=== PATIENT | female | born 1950 | race Caucasian/White ===

== ENCOUNTER → 2017-12-16 10:46 | Outpatient (CLI) | payer MEDICARE, OTHER, SELFPAY ==
--- NOTE | 2017-12-16 | DI.MG.S_ITS ---
BILATERAL DIGITAL SCREENING MAMMOGRAM 3D/2D WITH CAD: 12/16/2017 CLINICAL: Routine screening. Comparison is made to exams dated: 09/05/2015 mammogram, 06/04/2014 mammogram, and 05/18/2013 mammogram - [facility]. There are scattered fibroglandular elements in both breasts. Current study was also evaluated with a Computer Aided Detection (CAD) system. No significant masses, calcifications, or other findings are seen in either breast. There has been no significant interval change. IMPRESSION: NEGATIVE There is no mammographic evidence of malignancy. A 1 year screening mammogram is recommended. This exam was interpreted at Station ID: [id number]. NOTE: For mammograms, a report in lay terms will be sent to the patient. Approximately 15% of breast malignancies will not be visualized mammographically. In the management of a palpable breast mass, a negative mammogram must not discourage biopsy of a clinically suspicious lesion. Electronically Signed By: Nidhi odom/brock:12/16/2017 12:29:21 letter sent: Normal Exam ACR BI-RADS Category 1: Negative 3341F
== END ==
PROVIDERS: PCP Family Medicine; Visit Provider Family Medicine
DX: Z12.31 Encounter for screening mammogram for malignant neoplasm of breast (principal)
CPT/HCPCS: 77063; 77067

== ENCOUNTER → 2018-05-26 09:43 | Outpatient (CLI) | payer MEDICARE, OTHER, SELFPAY ==
[2018-05-26 11:09] LABS: Add Manual Diff / Slide Review NO; Basophils Absolute Auto 100 /uL (0-100); Basophils Percent Auto 0.8 % (0-2); Eosinophils Absolute Auto 100 /uL (0-450); Hematocrit 37.8 % (36-46); Hemoglobin 12.5 g/dL (12.0-16.0); Lymphocytes Absolute Auto 3000 /uL (1100-4500); Lymphocytes Percent Auto 30.2 % (25-40); Mean Corpuscular HGB Conc 33.1 % (30-36); Mean Corpuscular Hemoglobin 31.9 PG (26-34); Mean Corpuscular Volume 96.4 fL (80-100); Monocytes Absolute Auto 500 /uL (0-900); Neutrophils Absolute Auto 6300 /uL (1500-7000); Platelet Count 324 X10^3/uL (150-400); Red Blood Cell Count 3.92 X10^6/uL (4.0-5.2); Red Cell Distribution Width 13.7 % (11.6-14.8)
[2018-05-26 11:34] LABS: Alanine Aminotransferase 22 IU/L (9-52); Albumin 4.3 g/dL (3.5-5.0); Albumin Globulin Ratio 1.3 (1.0-2.8); Alkaline Phosphatase 74 U/L (38-126); Aspartate Aminotransferase 18 IU/L (14-36); Bilirubin Total 0.7 mg/dL (0.2-1.3); Blood Urea Nitrogen 17 mg/dL (7-17); Calcium 9.1 mg/dL (8.4-10.2); Carbon Dioxide 26 mmol/L (22-32); Chloride 103 mmol/L (98-107); Cholesterol 226 mg/dL (140-199); Estimated Glomerular Filt Rate > 60.0 mL/min (>60); Globulin 3.3 g/dL (1.7-4.1); Glucose 96 mg/dL (80-110); HDL Cholesterol 69 mg/dL (40-60); HEMOLYSIS < 15 (0-50); LDL Cholesterol Calculated 135 mg/dL (<100); Potassium 3.9 mmol/L (3.4-5.1); Sodium 139 mmol/L (137-145); Total Protein 7.6 g/dL (6.3-8.2); Triglycerides 110 mg/dL (35-150)
[2018-05-26 12:29] LABS: Thyroid Stimulating Hormone 2.22 uIU/mL (0.47-4.68)
== END ==
PROVIDERS: PCP Family Medicine; Visit Provider Family Medicine
DX: R89.9 Unspecified abnormal finding in specimens from other organs, systems and tissues (principal); E78.5 Hyperlipidemia, unspecified; Z13.0 Encounter for screening for diseases of the blood and blood-forming organs and certain disorders involving the immune mechanism; Z13.29 Encounter for screening for other suspected endocrine disorder
CPT/HCPCS: 36415; 80053; 80061; 84443; 85025

== ENCOUNTER → 2018-12-09 12:12 | Outpatient (CLI) | payer MEDICARE, OTHER, SELFPAY ==
[2018-12-09 12:41] LABS: Hematocrit 37.7 % (36-46); Hemoglobin 12.7 g/dL (12.0-16.0); Mean Corpuscular HGB Conc 33.8 % (30-36); Mean Corpuscular Hemoglobin 32.1 PG (26-34); Mean Corpuscular Volume 95.1 fL (80-100); Platelet Count 316 X10^3/uL (150-400); Red Blood Cell Count 3.97 X10^6/uL (4.0-5.2); Red Cell Distribution Width 12.3 % (11.6-14.8); White Blood Cell Count 7.1 X10^3/uL (4.5-11.0)
[2018-12-09 12:57] LABS: Hemoglobin A1C% w Est Avg Glu 5.6 % (4.0-6.0)
[2018-12-09 13:08] LABS: Erythrocyte Sedimentation Rate 10 MM/HR (0-20)
[2018-12-09 13:21] LABS: Appearance Urine UA CLEAR; Bilirubin Urine UA NEGATIVE (NEGATIVE); Color Urine UA YELLOW; Glucose Urine UA NEGATIVE (Negative); Ketones Urine UA NEGATIVE (NEGATIVE); Leukocyte Esterase Urine UA NEGATIVE (NEGATIVE); Nitrite Urine UA POSITIVE (Negative); Occult Blood Urine UA TRACE-LYSED (Negative); Protein Urine UA NEGATIVE (Negative); Specific Gravity Urine UA 1.015 (1.000-1.035); Urobilinogen Urine UA 0.2 E.U./dL (0.2)
[2018-12-09 13:26] LABS: pH Urine UA 5.5 (4.5-8.0)
[2018-12-09 13:28] LABS: Amorphous Sediment Urine 1+; Bacteria Urine Many (>30); Culture Indicated Urine Specimen Cultured; RBC Urine 0-1/HPF (0-5/HPF); Squamous Epithelial Cell Urine 1-5 /HPF (0-5/HPF); WBC Urine 5-10/HPF (0-5/HPF)
[2018-12-09 13:29] LABS: BUN Creatinine Ratio 33.3 (6-22); Blood Urea Nitrogen 20 mg/dL (7-17); C-Reactive Protein Quant 1.3 mg/dL (<1.0); Carbon Dioxide 25 mmol/L (22-32); Chloride 105 mmol/L (98-107); Estimated Glomerular Filt Rate > 60.0 mL/min (>60); Glucose 109 mg/dL (80-110); HEMOLYSIS < 15 (0-50); Sodium 140 mmol/L (137-145)
== END ==
PROVIDERS: PCP Family Medicine; Visit Provider Orthopaedic Surgery
DX: Z01.818 Encounter for other preprocedural examination (principal); N39.0 Urinary tract infection, site not specified; R73.9 Hyperglycemia, unspecified
CPT/HCPCS: 36415; 80048; 81001; 83036; 85027; 85651; 86140; 87077; 87086; 87186; 93005; 93010

== ENCOUNTER → 2019-01-11 12:25 | Outpatient (CLI) | payer MEDICARE, OTHER, SELFPAY ==
--- NOTE | 2019-01-11 | DI.MG.S_ITS ---
BILATERAL DIGITAL SCREENING MAMMOGRAM 3D/2D WITH CAD: 01/11/2019 CLINICAL: Routine screening. Comparison is made to exams dated: 12/16/2017 mammogram, 09/05/2015 mammogram, and 06/04/2014 mammogram - [facility]. There are scattered fibroglandular elements in both breasts. Current study was also evaluated with a Computer Aided Detection (CAD) system. No significant masses, calcifications, or other findings are seen in either breast. There has been no significant interval change. IMPRESSION: NEGATIVE There is no mammographic evidence of malignancy. A 1 year screening mammogram is recommended. This exam was interpreted at Station ID: [id number]. NOTE: For mammograms, a report in lay terms will be sent to the patient. Approximately 15% of breast malignancies will not be visualized mammographically. In the management of a palpable breast mass, a negative mammogram must not discourage biopsy of a clinically suspicious lesion. Electronically Signed By: Nidhi odom/brock:01/13/2019 16:25:01 letter sent: Normal Exam ACR BI-RADS Category 1: Negative 3341F
== END ==
PROVIDERS: PCP Family Medicine; Visit Provider Family Medicine
DX: Z12.31 Encounter for screening mammogram for malignant neoplasm of breast (principal)
CPT/HCPCS: 77063; 77067

== ENCOUNTER 2019-02-02 07:41 | Inpatient (IN) | payer MEDICARE, OTHER, SELFPAY ==
[2019-01-19 09:44] VITALS: BMI 38.0
[2019-02-02] VITALS (17 sets, daily range): BP systolic 105–174; BP diastolic 63–92; PULSE 69–101; RESP 9–17; TEMP 35–36.8; O2SAT 91–99; BMI 38.0
--- NOTE | 2019-02-02 06:00 | DI.RAD.S_ITS ---
PROCEDURE: XR KNEE RT 1TO2V INDICATIONS: TKA TECHNIQUE: 2 view(s) of the knee acquired. COMPARISON: None. FINDINGS: Bones: Patient is status post knee joint arthroplasty. Hardware components are in expected positions. Visualized bony structures are intact. Soft tissues: Overlying postoperative changes are noted. IMPRESSION: Post right total knee arthroplasty changes with anatomic right knee alignment. Dictated by: Seth Dillon M.D. on 02/02/2019 at 15:27 Approved by: Seth Dillon M.D. on 02/02/2019 at 15:28
[2019-02-02] MEDS: ACETAMINOPHEN 325 MG TABLET 975 MG PO ×2 (08:53→20:02)
[2019-02-02] MEDS: PREGABALIN 75 MG CAPSULE PO (08:53)
[2019-02-02] MEDS: CELECOXIB 200 MG CAPSULE PO (08:53)
[2019-02-02] MEDS: VANCOMYCIN 1,000 MG/200 ML PIGGYBACK 200 MG IV (09:22)
[2019-02-02] MEDS: LACTATED RINGERS 1,000 ML 42 ML IV ×2 (09:23→12:31)
--- NOTE | 2019-02-02 09:59 | PM.PREOP ---
Pre-operative Note Interval Note History & Physical reviewed/Exam performed by Physician: Yes Changes to H&P: No
--- NOTE | 2019-02-02 10:00 | PM.OP.1 ---
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 Surgeon: Sheyla Barclay Retail Grocer: Valery Jessica Anesthesia Type: General and Spinal Operative Notes Findings: Severe lateral compartment arthritis and patellofemoral arthritis, unicompartment attached and not grossly loose and worn Closure Type: primary Specimen(s): other (Deep cultures) Prosthetic devices, grafts, tissues, transplants, or devices: Barclay and Nephew Journey BCS 2 size 2 tibia, size 2 right femur, +12 poly, 35 by 7-03/30 patella Applied: drain(s) Estimated Blood Loss (mL): 300 Blood products transfused: none Tourniquet time (min): 130 Procedure in detail: The patient was seen in the pre-operative area, where the patient identified the right knee as the operative site and this was marked with my initials. The patient received pre-operative antibiotics, and was taken to the operating room and placed on the operative table in the supine position. After satisfactory anesthesia, a program aide group work out was performed. The right leg was encircled with a tourniquet about the proximal thigh, and the leg was prepared from the toes to the tourniquet with ChloroPrep in the usual fashion and draped through sterile drapes. The leg was elevated and exsanguinated with Eschmark bandage and the tourniquet inflated to [250] mmHg pressure. The knee was approached through an approximately 18 cm incision centered over the patella and carried into the knee through a medial parapatellar arthrotomy. A portion of the lateral meniscus was resected. Soft tissue was carefully mobilized around the patella the patella was measured with a caliper. Bone was resected from the patella and the patellar height was reconstituted with up an appropriate sized patellar component. A cover was then placed on the patella. Soft tissue was dissected was carried out around the joint line medially and laterally and initial releases was performed. The distal femur was cut at 5?. A [+2] cut was used. The femoral component was then meticulously removed using a combination of a TPS saw and osteotomes. There was minimal bone loss. It looked like an appropriate distal femoral cut and the cut was made without difficulty. Dissection was then carried around the proximal tibia and tibial component. The tibia saw was used to loosen the component from the underlying bone cement. There was some gap in the medial tibial bone but not severe. An extramedullary guide was used for the tibial cut. 10 mm was resected off the least affected side.The tibia was prepared. The rotation was assessed. The patient was placed in extension residual medial and lateral meniscus as well as any residual bone was carefully resected. Hemostasis was achieved especially posteriorly. Additional local was injected into the posterior capsule. The extension gap was assessed and additional releases for gap balancing were performed as necessary. It was checked with the gap supervisor inspection department. The femoral sizing and cutting guide was placed. The epicondylar axis was identified. Whitesides line was identified. There was a gap in the posterior aspect of the femur from the previous unicompartment replacement on the medial side I used a combination of filling this with the osteotome checking the overall alignment externally rotating the component a few degrees and also placing a small osteotome against the bone in order to further stabilize the trial Sizer. She had a small femur it was a size 2. The rotation was assessed and the appropriate size femoral guide was placed on the distal femur and finishing cuts were made. She had very thin anterior cortex and there was a small amount of bone loss in the anterior cortex which was noted prior to doing finishing cuts on the distal femur. There was no evidence of notching. The anterior, posterior and chamfer cuts were then made. The posterior osteophytes and soft tissues were then removed. We also looked at possibly doing a size 3 femur or considering doing a legion size 3 femur which would have allowed placement of his stem. She had a very small in soft distal femur and I was concerned that the prep for the stem would have resected an excessive amount of her distal femur. After careful consideration of different options I chose a Journey size 2 femur. The notch was prepped. The posterior capsule was injected with part of a mixture of 60 ml 0.25% Marcaine mixed with 20 ml Exparel for post operative pain control. The remainder of this mixture was injected into the capsule and subcutaneous tissues during cement curing. Tibial and femoral components were then placed and the knee placed through a range of motion. Range of motion was [0-130], with good stability throughout the range with between an 11 and a 12 polyethylene. The trials were then removed, and the tibia was finished. The size 2 tibia appeared to be appropriately sized and had good support both medially and laterally as well as peripherally. I had planned to do a 10 mm stem and I reamed for a 10 mm stem through the tibial base plate. The bone was prepared with pulsatile lavage, and dried with a sponge. Cement was applied and the we attempted to insert the tibial component with 100 mm stem extension. It clearly could not be passed distally and it was felt to be impinging on the coupling component of the prosthesis. There was not a size 2 tibial trial component available. After careful consideration it was felt that the size 2 tibia with 100 mm stem extension could not be passed and a separate size to Journey tibial component was opened and inserted without difficulty. Free cement was carefully cleared from around the tibial component. Cement was placed on the femoral component and the femoral component was placed. Trial 11 poly was placed. Patella was cemented without difficulty. Excess cement was removed during and after cement curing. A brief Betadine soak was performed. After confirming there was no extruded cement posteriorly, the final tibial insert was placed. I went up to a size 12 poly. The knee was copiously irrigated and the tourniquet deflated. Hemostasis was obtained with the [Aquamantys system]. A drain was placed and brought out superolaterally. The capsule was closed with interrupted nonabsorbable suture. The subcutaneous layer was closed with barbed sutures, and the skin with a running 3-0 V-Lock suture and Surgical glue. An sherif dressing was applied and the patient was taken to recovery having tolerated the procedure well. Complications: none Post-operative Condition: stable Disposition: Acute Care Plan for aftercare: The patient will be maintained on a standard total knee replacement protocol with weight bearing as tolerated. The patient will receive aspirin and sequential compression devices for DVT prophylaxis. The patient will be discharged home when safe for the home environment.
[2019-02-02] MEDS: CEFAZOLIN 2 GM/100 ML FROZ.PIGGY IV ×2 (10:50→18:18)
--- NOTE | 2019-02-02 11:38 | SUR.OPER ---
Supine on padded OR bed. Pillow under head, arms secured on padded armboards <90 degree abduction. Safety belt across torso. Non-operative leg secured with tape over blanket over lower leg. Operative leg secured in DeMayo/Eddie positioner. Foam padded brace at thigh of operative leg.
[2019-02-02] MEDS: TRANEXAMIC ACID 1,000 MG VIAL 2000 MG INJ ×2 (11:48→13:21)
[2019-02-02] MEDS: BUPIVACAINE LIPOSOME 266 MG/20 ML VIAL INJ (11:48)
[2019-02-02] MEDS: BUPIVACAINE 0.25% W/ EPI 30 ML VIAL 60 ML INJ (11:48)
[2019-02-02] MEDS: SODIUM CHLORIDE IRRIG SOLUTION 250 ML, POVIDONE-IODINE SPONGE STICKS 1 APPLIC IRR (11:54)
[2019-02-02] MEDS: HYDROMORPHONE 2 MG INJ 0.5 MG IV ×2 (14:49→14:55)
--- NOTE | 2019-02-02 14:56 | SUR.PHASEI ---
HV unclamped while patient was getting an x-ray, drain re-clamped quickly.
--- NOTE | 2019-02-02 16:00 | SUR.PHASEI ---
Report called to Key. Pt c/o need to void, place on bedpan, able to void ganesh urine.
--- NOTE | 2019-02-02 16:50 | SUR.PHASEI ---
1610 Report to Aníbal. VS stable. Belongings bag with patient. Walker brought up by Silver. Knee drsg cdi. HV clamped. JOANNA green light flashing.
[2019-02-02] MEDS: ONDANSETRON 4 MG ODT PO (17:02)
[2019-02-02] MEDS: LACTATED RINGERS 1,000 ML 125 ML IV (17:03)
[2019-02-02] MEDS: ASPIRIN EC 81 MG TABLET PO (20:01)
[2019-02-02] MEDS: DOCUSATE 100 MG CAPSULE PO (20:01)
[2019-02-02] MEDS: OXYCODONE IR 10 MG TABLET PO (20:01)
[2019-02-03] MEDS: OXYCODONE IR 10 MG TABLET PO ×7 (01:25→21:46)
[2019-02-03] MEDS: LACTATED RINGERS 1,000 ML 125 ML IV (01:26)
--- NOTE | 2019-02-03 01:54 | PC.NURSE ---
TO Dr Walker - Give Valium 5mg PO PRN q 8 hours to help patient sleep
[2019-02-03] MEDS: diazePAM 5 MG TABLET PO (02:11)
[2019-02-03] MEDS: CEFAZOLIN 2 GM/100 ML FROZ.PIGGY IV (02:12)
[2019-02-03] MEDS: PANTOPRAZOLE 20 MG TABLET PO (05:39)
[2019-02-03 06:06] LABS: Hematocrit 31.8 % (36-46); Hemoglobin 10.5 g/dL (12.0-16.0)
[2019-02-03 08:00] VITALS: BP 110/48; PULSE 78; RESP 18; TEMP 36.8; O2SAT 95
[2019-02-03] MEDS: ACETAMINOPHEN 325 MG TABLET 975 MG PO ×3 (08:21→20:51)
[2019-02-03] MEDS: ESTRADIOL 0.5 MG TABLET PO (08:22)
[2019-02-03] MEDS: ASPIRIN EC 81 MG TABLET PO ×2 (08:22→20:51)
[2019-02-03] MEDS: DICLOFENAC 75 MG DR TABLET 150 MG PO (08:22)
[2019-02-03] MEDS: DOCUSATE 100 MG CAPSULE PO ×2 (08:22→20:51)
[2019-02-03] MEDS: POLYETHYLENE GLYCOL 3350 17 GM POWD.PACK PO (08:23)
--- NOTE | 2019-02-03 08:57 | PM.DS.1 ---
History of Present Illness History of Present Illness Chief complaint: [id number] Discharge Providers Provider Date of admission: 02/02/19 07:41 Primary care physician: Phuc Polanco MD Consults: 02/02/19 06:00 Consult to Anesthesiology Routine Comment: Consulting Provider: Anesthesiologist Reason for consultation: Regional block for post operative pain control 02/02/19 16:16 Consult to Discharge Planning Routine Comment: Consult to Physical Therapy Evaluate & Treat Comment: Physician Instructions: postop TKA protocol Consult to Respiratory Therapy Evaluate & Treat Comment: Physician Instructions: Evaluate and treat Discharge provider: Jayshree Mendoza PA-C Exam Vital Signs (past 8 hours): - 02/03/19 08:00 Temperature 98.2 F Pulse Rate 78 Respiratory Rate 18 Blood Pressure 110/48 L Pulse Oximetry 95 Oxygen Delivery Method Room Air Oxygen Flow Rate 0 Objective Labs Result Diagrams: 02/03/19 05:44 Labs: Laboratory Results - last 24 hr 02/03/19 05:44 Hgb 10.5 L Hct 31.8 L Discharge Plan Discharge Plan Patient Disposition: Home Discharge Med Rec/Prescriptions Prescriptions: New aspirin 81 mg Tablet,Delayed Release (Dr/Ec) 81 mg PO BID Qty: 60 RF: 0 docusate sodium [DOK] 100 mg Capsule 100 mg PO BID Qty: 60 RF: 0 Continued omeprazole 20 mg tablet,delayed release (DR/EC) 20 mg PO QDAY Qty: 90 RF: 1 estradiol 0.5 mg tablet 0.5 mg PO Q DAY Qty: 90 RF: 3 triamcinolone acetonide 0.1 % cream 1 applictn TOP BID PRN (Reason: Rash) RF: 0 nortriptyline 25 mg capsule 50 mg PO QAM RF: 0 diclofenac sodium 75 mg tablet,delayed release (DR/EC) 150 mg PO QAM RF: 0 acetaminophen [Acetaminophen Extra Strength] 500 mg Tablet 1,000 mg PO DAILY PRN (Reason: Pain) RF: 0 Follow up/Referrals: Phuc Polanco MD [Primary Care Provider] - Sheyla Barclay MD [Physician] - Provider Discharge Instructions Cold/Heat Therapy: as needed Skin/Wound/Dressing Care Report to your healthcare provider any signs of infection, such as:: chills, fever and increased pain Dressing: Keep in place until appointment Visit Report/Discharge Packet Instructions: DI for Knee Replacement Discharge Data Primary Care Provider: Phuc Polanco VTE Deep Vein Thrombosis/Pulmonary Embolism Present on Admission: No
--- NOTE | 2019-02-03 09:02 | CM.IDA ---
Discharge Planning/Care Management CM Discharge Assessment Start: 02/03/19 08:58 Freq: Status: Active Protocol: Document 02/03/19 08:58 AMADOU (Rec: 02/03/19 09:02 AMADOU [id number]) Discharge Planning Assessment Assigned Bird Sitter SHAYNE Finley DPOA/Assigned Designee Name Jian (son) Sami (daughter) Contact Information [phone], Advance Directives? Yes History Provided By Patient Prior Living Arrangements Mobile home Household Members none Type of transporation used prior to Drives own vehicle admit Independent with ADL's Yes Is patient alert and oriented? Yes Patient/Family Preference OP PT Therapy Barriers to Discharge No Comment Pt plans to DC back to [facility] today w/ outpt f/u and dtr to assist once home. Ortho PA has begun DC process pending therapy team clears pt for DC today. Likely no barriers to safe DC home, pending progress w/ therapy team today. Discharge Plan Home Transportation Arrangement Family Referrals Initiated None needed Review Status In Process
--- NOTE | 2019-02-03 10:14 | PM.PNPO.1 ---
Subjective Subjective Date Patient Seen: 02/03/19 Time Patient Seen: 07:14 Interval history: POD #1 s/p right total knee arthroplasty revision from unicompartment arthroplasty with Dr. Barclay. Patient's pain well-controlled last night. Drain in place. She has not been up with physical therapy yet. Exam Vital Signs (past 8 hours): - 02/03/19 08:00 Temperature 98.2 F Pulse Rate 78 Respiratory Rate 18 Blood Pressure 110/48 L Pulse Oximetry 95 Oxygen Delivery Method Room Air Oxygen Flow Rate 0 Narrative Exam Narrative: Patient sitting up in bed in no acute distress. We mobilized to the bedside chair. She was slow to mobilize requiring to assist. Chi Dressing on right knee is CDI. Calves are soft, compressible, nontender bilaterally. Pulses are symmetrical. Objective Labs Result Diagrams: 02/03/19 05:44 Labs: Laboratory Results - last 24 hr 02/03/19 05:44 Hgb 10.5 L Hct 31.8 L Assessment & Plan Post-op Postoperative Procedures: Procedures Operation Date: 02/02/19 10:45 Actual Procedures Side Surgeon p Revision in the compatment arthroplasty medial to total knee arthroplasty Right Sheyla Golden Barclay MD Patient recovering well after surgery. She is slow to mobilize. She will work with physical therapy today. Continue current pain control. She may need home health services vs SNF if she continues to be slow to mobilize. Quality VTE Deep Vein Thrombosis/Pulmonary Embolism Present on Admission: No
[2019-02-03] MEDS: CYCLOBENZAPRINE 5 MG TABLET PO ×2 (11:54→19:05)
--- NOTE | 2019-02-03 12:24 | PT.IIE ---
Current Diagnoses Unilateral primary osteoarthritis, right knee (02/02/19) Presence of right artificial knee joint (02/02/19) Surgery Performed Operation Date: 02/02/19 10:45 Actual Procedures p Revision in the compatment arthroplasty medial to total knee arthroplasty(Right) - Sheyla Barclay MD Surgical History (Last Updated 01/19/19 @ 10:22 by Angelita Lama RN) History of bilateral knee arthroplasty (Acute) History of colon resection (Acute) History of hysterectomy (Acute) Hx laparoscopic cholecystectomy (Acute ~07/2014) Hx of hernia repair (Acute) Medical History (Last Updated 01/19/19 @ 10:22 by Angelita Lama RN) Bilateral cataracts (Acute) Edema (Acute) GERD (gastroesophageal reflux disease) (Acute) Hypercholesterolemia (Acute) Pneumonia (Acute ~07/2014) RLS (restless legs syndrome) (Acute) Physical Therapy Inpatient Evaluation/Re-Eval M1 PT/OT-IP Prior Functional Status Start: 02/03/19 08:08 Freq: NEEDED Status: Active Protocol: Document 02/03/19 09:12 (Rec: 02/03/19 11:53 [id number]) Medical Review Prior Functional Status Medical History Reviewed Yes Diet/Fluid Consistency Regular Communication No noted cognitive or communication deficits. Mobility and Gait I prior to surgery. Activities of Daily Living and IADL's I prior to surgery. Prior Functional Level (Other details) Pt was able to drive prior to surgery. Pt had a L TKA 7-8 years ago and was able to return home and to full I following that. Social History Household Members none Living Arrangements Mobile home Number of Floors (Floors) One Floor Number of Stairs To Enter/Railing? 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 Pt does not live with anybody but her son lives about [address] away from her. Pt's daughter is also planning to come from [facility] to stay with her for about a week once she returns home. 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 Pt has multiple ADs at home and says she plans to use her 4WW. M2 PT-IP Current Condition Start: 02/03/19 08:08 Freq: NEEDED Status: Active Protocol: Document 02/03/19 09:12 JG (Rec: 02/03/19 11:53 J [id number]) Physical Therapy Current Condition Current Condition Evaluation Date 02/03/19 Treatment Diagnosis R TKA, difficulty walking, impaired mobility, limited activity tolerance Onset Date 02/02/19 Weight Bearing Status Weight Bearing Status Weight Bear as Tolerated M3 PT-IP Subjective Start: 02/03/19 08:08 Freq: NEEDED Status: Active Protocol: Document 02/03/19 09:12 JG (Rec: 02/03/19 11:53 J [id number]) Subjective Physical Therapy Visit Type Type Initial Evaluation Visit Start Time 09:12 Visit Stop Time 09:48 Total Visit Minutes 36 Notes IE led by SPT Dafne, supervised by PT Shemar Number of MULTIMEDIA INSTRUCTIONAL DESIGNER Visits 0 Physical Therapy Visit Comments Patient Comments I am in a lot of pain. I would like to go home but I don't think I'm ready for that today. Patient Goals Return home Therapy Pain Assessment Pain When Pain Assessed At Rest Pain Present Pain Present Pain Reported Location right knee Intensity 5 Scale Used Numeric (1 - 10) Description Acute,Sharp,With Movement Pain Behaviors Calling Out,Facial Grimacing, Guarding,Wincing Pain Management Techniques Apply Cold,Distraction,Timing of Activity with Medications M4 PT-IP Mobility and Gait Start: 02/03/19 08:08 Freq: NEEDED Status: Active Protocol: Document 02/03/19 09:12 JG (Rec: 02/03/19 11:53 J [id number]) PT-Transfer Assessment Sit to and From Stand Sit to and from Stand Minimal Assistance,Use of Upper Extremities Equipment Transfer Assistive Device Gait Belt,Front Wheeled Walker Orthotic/Prosthetic Devices or Brace: No Transfers Transfer Destination Chair Transfer Technique Stand Step Pivot Transfer Ability Level of Assist Minimal Assistance Comments Mobility Comments Pt up in chair upon assessment . Pt able to scoot to edge of chair with Hazel. Upon standing initially pt experienced urinary stress incontinence ( Never happend before surgery). Pt performed multiple sit to/ from stand with min A to don a brief. Needed cues for walker management and hand placement . She did have difficulty reaching full stance from mid stance. Pt able to perform pericare when sitting but required assist when standing as pt required both UE support to maintain standing d/t pain . Following ambulation pt required min A to control descent with stand to sit, and modA to scoot back in chair. Pt reported high pain limited her ability to move her R leg. Pt left in chair with call light and needs within reach and ice packs on her R knee. Gait Assessment Gait Gait Assistance Required: Contact Guard Assist,Minimum Assistance Distance (Feet) 30 Able to Maintain Weight Bearing Status Yes During Gait Assistive Devices Assistive Device Gait Belt,Front Wheeled Walker Orthotic/Prosthetic Devices or Brace: No Gait Deviations General Gait Pattern Antalgic,Decreased Stride Length,Decreased Feet Clearance,Flexed Trunk,Lateral Trunk Lean,Step-to Gait,Wide Based Gait Factors Limiting Gait Function Factors Limiting Gait Function Decreased Activity Tolerance, Decreased Strength,Limited Range of Motion,Pain,Poor Balance Comments Gait Comments Pt demonstrated significant impairments in gait d/t pain. Pt was very hesitant to place weight on R LE d/t pain. Pt ambulated with partial step to gait pattern initially, and with cuing was able to achieve step to gait but had increased pain. Pt required initial CGA but after ~20 ft required min A d/t fatigue and pain. Stair Climbing Assessment Comments Stair Climbing Comments not assessed PT-Balance Assessment Sitting Balance and Reactions Static Sitting Balance Ability Good Dynamic Sitting Balance Ability Good Standing Balance and Reactions Static Standing Balance Ability Fair Dynamic Standing Balance Ability Fair Device Used FWW M5 PT-IP Objective Assessments Start: 02/03/19 08:08 Freq: NEEDED Status: Active Protocol: Document 02/03/19 09:12 HUNTER (Rec: 02/03/19 11:53 [id number]) Orientation Orientation/Cognition Level of Alertness Alert Orientation Name,Age,Birthday,Month,Date, Year,Day of Week,Place, Situation Language Function Ability No Deficits Noted Safety Awareness Understands Safety Issues Memory Description No Deficits Noted Comments No noted cognitive or communication deficits. Pt was slightly impulsive during session as she fatigued. Gross Range of Motion Upper Extremity ROM Assessment Within Functional Limits Lower Extremity ROM Assessment Right Impaired Impairments 10-45 dg knee flexion, limited d/t pain Strength Upper Extremity Strength Assessment Within Functional Limits Lower Extremity Strength Assessment Right Impaired M6 PT-IP Treatment Start: 02/03/19 08:08 Freq: NEEDED Status: Active Protocol: Document 02/03/19 09:12 HUNTER (Rec: 02/03/19 11:53 HUNTER [id number]) Physical Therapy Treatment Education Education Provided Weight Bearing Status,Post-Op Packet,Safety M7 PT-IP Assessment and Plan Start: 02/03/19 08:08 Freq: NEEDED Status: Active Protocol: Document 02/03/19 09:12 HUNTER (Rec: 02/03/19 11:53 HUNTER [id number]) PT Summary Assessment and Plan Potential Rehabilitation Potential Good Status of Condition at Evaluation Stable Summary Impairments Pain,ROM,Strength,Balance,Bed Mobility,Transfers,Gait, Activity Tolerance Assessment Summary Pt is 68 yo and 1 day s/p R TKA revision. Pt reports I PLOF but high pain level in R knee. Pt cont to report high level of pain even after administration of pain meds. Pt demonstrates limited ability to move and weightbear on R LE d/t pain. Pt required initial min A for mobility. Pt also required assistance with self care and could not don brief independently. Pt lives [place] but notes that her daughter will stay with her for a few days after d/c and her son lives nearby. PT currently recommending d/c to SNF or home with 24/7 assist and home health d/t pt's limited activity tolerance and ability to complete ADLs. PT will cont to reassess. Goals Bed Mobility Goal Independent Transfer Goal Independent Gait Goal Independent Gait Distance 250 Other Goals Ascend/descend 3 stairs with B railings and SBA Days to Meet Goals 5 Frequency of Treatment Frequency Of Treatment Twice a Day Treatment Plan Physical Therapy Treatment Plan Bed Mobility Training,Transfer Training,Gait Training, Therapeutic Exercise,Balance Retraining,Discharge Planning, Hot or Cold Pack,Neuromuscular Re-ed Other Recommendations and Next Treatment knee AROM Focus gait training stair climbing if possible Recommendations To Nursing Amount of Assist Needed 2 Person Assist Discharge Recommendations PT Discharge Recommendations Home with 24/7 Assist,Home Health,SNF Rehab,Outpatient PT Equipment Needed for Home Before Shower chair Discharge
--- NOTE | 2019-02-03 14:58 | PT.IPTN ---
Current Diagnoses Unilateral primary osteoarthritis, right knee (02/02/19) Presence of right artificial knee joint (02/02/19) Surgery Performed Operation Date: 02/02/19 10:45 Actual Procedures p Revision in the compatment arthroplasty medial to total knee arthroplasty(Right) - Sheyla Barclay MD Physical Therapy Treatment Note M2 PT-IP Current Condition Start: 02/03/19 08:08 Freq: NEEDED Status: Active Protocol: Document 02/03/19 09:12 JG (Rec: 02/03/19 11:53 JG [id number]) Physical Therapy Current Condition Current Condition Evaluation Date 02/03/19 Treatment Diagnosis R TKA, difficulty walking, impaired mobility, limited activity tolerance Onset Date 02/02/19 Weight Bearing Status Weight Bearing Status Weight Bear as Tolerated M3 PT-IP Subjective Start: 02/03/19 08:08 Freq: NEEDED Status: Active Protocol: Document 02/03/19 14:58 AB (Rec: 02/03/19 16:41 AB [id number]) Subjective Physical Therapy Visit Type Type Treatment Note Visit Start Time 14:58 Visit Stop Time 15:38 Total Visit Minutes 40 Number of PORTFOLIO SPECIALIST Visits 0 Physical Therapy Visit Comments Patient Comments pt agreeable to do PT Therapy Pain Assessment Pain When Pain Assessed At Rest Pain Present Pain Present Pain Reported Location right knee Intensity 6 Scale Used Numeric (1 - 10) Pain Management Techniques Apply Cold,Re-positioning M4 PT-IP Mobility and Gait Start: 02/03/19 08:08 Freq: NEEDED Status: Active Protocol: Document 02/03/19 14:58 AB (Rec: 02/03/19 16:41 AB [id number]) PT-Transfer Assessment Sit to and From Stand Sit to and from Stand Minimal Assistance,1 Person Assistance,Use of Upper Extremities Equipment Transfer Assistive Device Gait Belt,Front Wheeled Walker Orthotic/Prosthetic Devices or Brace: No Gait Assessment Gait Gait Assistance Required: Minimum Assistance Distance (Feet) 30 Able to Maintain Weight Bearing Status Yes During Gait Assistive Devices Assistive Device Gait Belt,Front Wheeled Walker Orthotic/Prosthetic Devices or Brace: No Gait Deviations General Gait Pattern Antalgic,Decreased Stride Length,Decreased Feet Clearance,Step-to Gait Factors Limiting Gait Function Factors Limiting Gait Function Decreased Activity Tolerance, Decreased Strength,Limited Range of Motion,Pain,Poor Balance,Poor Safety Awareness Comments Gait Comments pt presents with RLE dragging gait but eventually increased in RLE elevation with cues provided. pt has increase use of UE for support on FWW during standing and ambulation with c/o increase R k nee pain. M5 PT-IP Objective Assessments Start: 02/03/19 08:08 Freq: NEEDED Status: Active Protocol: Document 02/03/19 09:12 JG (Rec: 02/03/19 11:53 JG [id number]) Orientation Orientation/Cognition Level of Alertness Alert Orientation Name,Age,Birthday,Month,Date, Year,Day of Week,Place, Situation Language Function Ability No Deficits Noted Safety Awareness Understands Safety Issues Memory Description No Deficits Noted Comments No noted cognitive or communication deficits. Pt was slightly impulsive during session as she fatigued. Gross Range of Motion Upper Extremity ROM Assessment Within Functional Limits Lower Extremity ROM Assessment Right Impaired Impairments 10-45 dg knee flexion, limited d/t pain Strength Upper Extremity Strength Assessment Within Functional Limits Lower Extremity Strength Assessment Right Impaired M6 PT-IP Treatment Start: 02/03/19 08:08 Freq: NEEDED Status: Active Protocol: Document 02/03/19 14:58 AB (Rec: 02/03/19 16:41 AB [id number]) Physical Therapy Treatment Exercises Exercises Heel Slides Education Education Provided Safety M7 PT-IP Assessment and Plan Start: 02/03/19 08:08 Freq: NEEDED Status: Active Protocol: Document 02/03/19 14:58 AB (Rec: 02/03/19 16:41 AB [id number]) PT Summary Assessment and Plan Potential Rehabilitation Potential Good Summary Impairments Pain,ROM,Strength,Balance, Coordination,Sensation, Cognition,Bed Mobility, Transfers,Gait,Activity Tolerance Progress Towards Goals Slow Progress due to Pain Assessment Summary pt requiring min A with ambulation using FWW but relies heavily on UE for support. pt has 3 steps to enter with rails and needs to be completed prior to d/c. will have to conduct caregiver training with pt and pt's daughter. d/c plan depending on progress and if pt's daughter will be able to assist pt safely. will continue to assess but at this time may require SNF rehab. Goals Bed Mobility Goal Independent Transfer Goal Independent,Front Wheeled Walker Gait Goal Independent,Front Wheel Walker Gait Distance 250 Other Goals Ascend/descend 3 stairs with B railings and SBA Days to Meet Goals 5 Frequency of Treatment Frequency Of Treatment Twice a Day Treatment Plan Physical Therapy Treatment Plan Bed Mobility Training,Transfer Training,Gait Training, Therapeutic Exercise,Balance Retraining,Discharge Planning, Hot or Cold Pack,Neuromuscular Re-ed Other Recommendations and Next Treatment knee AROM Focus gait training stair climbing if possible Recommendations To Nursing Amount of Assist Needed 1 Person Assist Discharge Recommendations PT Discharge Recommendations SNF Rehab
--- NOTE | 2019-02-03 15:00 | CM.DPC ---
DCP cont. SUPERVISOR TRANSFERRING AND BOXING met with pt to continue d/c planning assessment needs. Pt had initially been scheduled to d/c home today, however she will remain inpt until tomorrow due to continued pain issues. She declines the need for Home Health/DME or community resources at this time. Her dtr will be arriving from out of town today, and will plan to drive pt home from the hospital tomorrow. No additional needs or concerns identified at this time. D/C planning will continue to monitor.
[2019-02-03 16:15] VITALS: BP 150/82; PULSE 82; RESP 20; TEMP 37.6; O2SAT 98
[2019-02-03 20:10] VITALS: BP 138/64; PULSE 84; RESP 20; TEMP 37.4; O2SAT 95
[2019-02-03] MEDS: NORTRIPTYLINE HCL 25 MG CAPSULE 50 MG PO (20:50)
[2019-02-04 00:10] VITALS: BP 110/58; PULSE 106; RESP 16; TEMP 36.4; O2SAT 93
[2019-02-04] MEDS: OXYCODONE IR 10 MG TABLET PO ×4 (00:18→13:22)
[2019-02-04] MEDS: PANTOPRAZOLE 20 MG TABLET PO (04:45)
[2019-02-04 05:20] VITALS: BP 106/80; PULSE 78; RESP 18; TEMP 36.4; O2SAT 95
[2019-02-04 08:00] VITALS: BP 113/75; PULSE 90; RESP 14; TEMP 36.6; O2SAT 96
[2019-02-04] MEDS: ASPIRIN EC 81 MG TABLET PO (09:18)
[2019-02-04] MEDS: DOCUSATE 100 MG CAPSULE PO (09:18)
[2019-02-04] MEDS: ACETAMINOPHEN 325 MG TABLET 975 MG PO (09:18)
[2019-02-04] MEDS: POLYETHYLENE GLYCOL 3350 17 GM POWD.PACK PO (09:19)
[2019-02-04] MEDS: ESTRADIOL 0.5 MG TABLET PO (09:19)
[2019-02-04] MEDS: DICLOFENAC 75 MG DR TABLET 150 MG PO (09:20)
--- NOTE | 2019-02-04 09:29 | PM.DS.1 ---
History of Present Illness History of Present Illness Date Patient Seen: 02/04/19 Time Patient Seen: 09:29 Chief complaint: [id number] Narrative: Pleasant lady with a history of a right knee medial compartment arthroplasty who has progressive osteoarthritis in her lateral compartment and patellofemoral joint spot the operating room for revision to a total knee arthroplasty. Discharge Providers Provider Date of admission: 02/02/19 07:41 Discharge Date: 02/04/19 Primary care physician: Phuc Polanco MD Consults: 02/02/19 06:00 Consult to Anesthesiology Routine Comment: Consulting Provider: Anesthesiologist Reason for consultation: Regional block for post operative pain control 02/02/19 16:16 Consult to Discharge Planning Routine Comment: Consult to Physical Therapy Evaluate & Treat Comment: Physician Instructions: postop TKA protocol Consult to Respiratory Therapy Evaluate & Treat Comment: Physician Instructions: Evaluate and treat Discharge provider: Jayshree Mendoza PA-C Summary Hospital Course Discharge Diagnosis: s/p right tka osteoarthritis obesity Hospital Course: Joann was admitted for a right total knee arthroplasty with Dr. Barclay. Initially patient was slow to mobilize yesterday. On postop day 2 patient was mobilizing safely with physical therapy. Her pain was well controlled. She is eating and voiding without difficulty or assistance. ASA for VTE prophylaxis. She has outpatient appointments scheduled. Exam Vital Signs (past 8 hours): - 02/04/19 05:20 02/04/19 08:00 Temperature 97.6 F 97.9 F Pulse Rate 78 90 Respiratory Rate 18 14 Blood Pressure 106/80 113/75 Pulse Oximetry 95 96 Oxygen Delivery Method Room Air Oxygen Flow Rate 0 Narrative Exam Narrative: Patient is sitting at bedside chair no acute distress. She is alert and oriented x3. Calves are soft, compressible, nontender bilaterally. Pulses are symmetrical. She is able to actively dorsiflex and plantar flex. Chi dressing in place and functioning. Sensation intact to light touch throughout bilateral lower extremities. No complaints this morning. Objective Labs Result Diagrams: 02/03/19 05:44 Discharge Plan Discharge Plan Patient Disposition: Home Discharge Med Rec/Prescriptions Prescriptions: New aspirin 81 mg Tablet,Delayed Release (Dr/Ec) 81 mg PO BID Qty: 60 RF: 0 docusate sodium [DOK] 100 mg Capsule 100 mg PO BID Qty: 60 RF: 0 Continued omeprazole 20 mg tablet,delayed release (DR/EC) 20 mg PO QDAY Qty: 90 RF: 1 estradiol 0.5 mg tablet 0.5 mg PO Q DAY Qty: 90 RF: 3 triamcinolone acetonide 0.1 % cream 1 applictn TOP BID PRN (Reason: Rash) RF: 0 nortriptyline 25 mg capsule 50 mg PO QAM RF: 0 diclofenac sodium 75 mg tablet,delayed release (DR/EC) 150 mg PO QAM RF: 0 acetaminophen [Acetaminophen Extra Strength] 500 mg Tablet 1,000 mg PO DAILY PRN (Reason: Pain) RF: 0 Follow up/Referrals: Phuc Polanco MD [Primary Care Provider] - Sheyla Barclay MD [Physician] - Provider Discharge Instructions Cold/Heat Therapy: as needed Skin/Wound/Dressing Care Report to your healthcare provider any signs of infection, such as:: chills, fever and increased pain Dressing: Keep in place until appointment Visit Report/Discharge Packet Instructions: DI for Knee Replacement Discharge Data Primary Care Provider: Phuc Polanco Quality VTE Deep Vein Thrombosis/Pulmonary Embolism Present on Admission: No
[2019-02-04 09:43] VITALS: PULSE 97; O2SAT 99
--- NOTE | 2019-02-04 09:52 | PC.NURSE ---
Hemovac drain discontinued, patient tolerated well. Gauze with tegaderm dressing placed to site.
--- NOTE | 2019-02-04 10:33 | CM.DANOTE ---
DCP/continued: Reviewed chart. Patient seen by therapy this AM and current recommendation is home with outpatient therapy. Met with patient explained role. Patient reports that she has all needed DME and family support at home. Patient has outpatient appointment scheduled for 02-06. Patient's daughter will be picking her up today. She plans to be on the 2:40pm sailing to [facility]. Nursing aware of patient's need for priority boarding pass. P: Home today. SHAYNE Donaldson
--- NOTE | 2019-02-04 11:09 | PT.IPTN ---
Current Diagnoses Unilateral primary osteoarthritis, right knee (02/02/19) Presence of right artificial knee joint (02/02/19) Surgery Performed Operation Date: 02/02/19 10:45 Actual Procedures p Revision in the compatment arthroplasty medial to total knee arthroplasty(Right) - Sheyla Barclay MD Physical Therapy Treatment Note M2 PT-IP Current Condition Start: 02/03/19 08:08 Freq: NEEDED Status: Active Protocol: Document 02/03/19 09:12 JG (Rec: 02/03/19 11:53 JG [id number]) Physical Therapy Current Condition Current Condition Evaluation Date 02/03/19 Treatment Diagnosis R TKA, difficulty walking, impaired mobility, limited activity tolerance Onset Date 02/02/19 Weight Bearing Status Weight Bearing Status Weight Bear as Tolerated M3 PT-IP Subjective Start: 02/03/19 08:08 Freq: NEEDED Status: Active Protocol: Document 02/04/19 09:48 IVELISSE (Rec: 02/04/19 11:09 LJ [id number]) Subjective Physical Therapy Visit Type Type Treatment Note Visit Start Time 09:48 Visit Stop Time 10:15 Total Visit Minutes 27 Number of FOOD CHEMIST Visits 1 Physical Therapy Visit Comments Patient Comments Pt states she is not in much pain and that she feels she is ready to go home today with assist from her daughter for the next few day. States her son lives close and is able to help also. Patient Goals Return home today Therapy Pain Assessment Pain When Pain Assessed At Rest Pain Present Pain Present Pain Reported M4 PT-IP Mobility and Gait Start: 02/03/19 08:08 Freq: NEEDED Status: Active Protocol: Document 02/04/19 09:48 IVELISSE (Rec: 02/04/19 11:09 LJ [id number]) PT-Transfer Assessment Sit to and From Stand Sit to and from Stand Standby Assistance,Use of Upper Extremities Equipment Transfer Assistive Device Gait Belt,Front Wheeled Walker Orthotic/Prosthetic Devices or Brace: No Transfers Transfer Destination Bed,Chair,Toilet Transfer Technique Stand Step Pivot Transfer Ability Level of Assist Standby Assistance,Use of Upper Extremities Comments Mobility Comments Pt in chair wanting to use toilet before walking in hallway and doing stairs and returning to bed. Pt is SBA for all mobility. Gait Assessment Gait Gait Assistance Required: Standby Assistance Distance (Feet) 250 Assistive Devices Assistive Device Gait Belt,Front Wheeled Walker Orthotic/Prosthetic Devices or Brace: No Gait Deviations General Gait Pattern Antalgic,Decreased Stride Length,Decreased Feet Clearance Factors Limiting Gait Function Factors Limiting Gait Function Decreased Activity Tolerance, Decreased Strength,Limited Range of Motion,Pain,Poor Balance Comments Gait Comments Pt improving with mobility and gait. Step length, mechanics, and foot clearance improving with swing through pattern improved. Pt relies less on UEs and shows better posture with amabulation. Stair Climbing Assessment Evaluation Level of Assist On Stairs Standby Assistance Devices Stair Climbing Assistive Devices Left Railing,Right Railing Technique/Endurance Stair Climbing Direction Ascend and Descend Number of Steps Climbed 3 Stair Climbing Set # Repetitions (reps) 2 Comments Stair Climbing Comments pt is safe on stairs using step to pattern. No increase in pain with stairs. M5 PT-IP Objective Assessments Start: 02/03/19 08:08 Freq: NEEDED Status: Active Protocol: Document 02/03/19 09:12 JG (Rec: 02/03/19 11:53 JG [id number]) Orientation Orientation/Cognition Level of Alertness Alert Orientation Name,Age,Birthday,Month,Date, Year,Day of Week,Place, Situation Language Function Ability No Deficits Noted Safety Awareness Understands Safety Issues Memory Description No Deficits Noted Comments No noted cognitive or communication deficits. Pt was slightly impulsive during session as she fatigued. Gross Range of Motion Upper Extremity ROM Assessment Within Functional Limits Lower Extremity ROM Assessment Right Impaired Impairments 10-45 dg knee flexion, limited d/t pain Strength Upper Extremity Strength Assessment Within Functional Limits Lower Extremity Strength Assessment Right Impaired M6 PT-IP Treatment Start: 02/03/19 08:08 Freq: NEEDED Status: Active Protocol: Document 02/03/19 14:58 AB (Rec: 02/03/19 16:41 AB [id number]) Physical Therapy Treatment Exercises Exercises Heel Slides Education Education Provided Safety M7 PT-IP Assessment and Plan Start: 02/03/19 08:08 Freq: NEEDED Status: Active Protocol: Document 02/04/19 09:48 LJ (Rec: 02/04/19 11:09 LJ [id number]) PT Summary Assessment and Plan Summary Impairments Pain,ROM,Strength,Balance, Coordination,Sensation, Cognition,Bed Mobility, Transfers,Gait,Activity Tolerance Assessment Summary Pt is SBA for all mobility and gait. Pt is safe to d/c home with assist. Goals Bed Mobility Goal Independent Transfer Goal Independent,Front Wheeled Walker Gait Goal Independent,Front Wheel Walker Gait Distance 250 Other Goals Ascend/descend 3 stairs with B railings and SBA Days to Meet Goals 5 Frequency of Treatment Frequency Of Treatment Twice a Day Treatment Plan Physical Therapy Treatment Plan Bed Mobility Training,Transfer Training,Gait Training, Therapeutic Exercise,Balance Retraining,Discharge Planning, Hot or Cold Pack,Neuromuscular Re-ed Other Recommendations and Next Treatment knee AROM Focus gait training stair climbing if possible Recommendations To Nursing Amount of Assist Needed 1 Person Assist Discharge Recommendations PT Discharge Recommendations Home with Assistance Equipment Needed for Home Before Shower chair Discharge
--- NOTE | 2019-02-04 13:33 | PC.NURSE ---
Patient ready for discharge, completed teaching with Edilia deluna RN, and patient has no further questions or concerns. IV dc'd intact. Patient showered and has all belonggings. Discharged to home with her daughter (who is visiting for next week to help with her care). JOANNA dressing remains intact. Patient escorted out via wheelchair with all belongings by VETERANS SERVICES SPECIALIST. Patient has follow up appointment scheduled on and states she has her medications already picked up. Instructed to report questions or concerns or signs of infection (as discussed in dc instructions) to surgeon or to seek emergent care for emergency.
[2019-02-14 08:49] LABS: Bacteria Det by PCR Univ WA SEE SEPARATE REPORTS
== END 2019-02-04 13:36 | disposition home or self-care (01) | DRG 468 ==
PROVIDERS: Admitting Provider Orthopaedic Surgery; PCP Family Medicine; Visit Provider Orthopaedic Surgery
PROC: 0SRC0J9 Replacement of Right Knee Joint with Synthetic Substitute, Cemented, Open Approach (ICD-10-PCS; principal; 2019-02-02 10:45)
DX: T84.092A Other mechanical complication of internal right knee prosthesis, initial encounter (principal); M17.11 Unilateral primary osteoarthritis, right knee; Z87.891 Personal history of nicotine dependence; Z96.652 Presence of left artificial knee joint
CPT/HCPCS: 36415; 73560; 85014; 85018; 87070; 87075; 87176; 87205; 87801; 94760; 97116; 97161; 97530; C1776; C9290; J0690; J1100; J1170; J2250; J2274; J2405; J2704; J3010

== ENCOUNTER → 2019-06-01 09:40 | Outpatient (CLI) | payer MEDICARE, OTHER, SELFPAY ==
[2019-02-02 08:26] VITALS: BMI 38.0
[2019-06-01 09:51] LABS: RBC Urine None Seen (0-5/HPF)
[2019-06-01 10:09] LABS: Add Manual Diff / Slide Review NO; Basophils Absolute Auto 100 /uL (0-100); Basophils Percent Auto 0.8 % (0-2); Eosinophils Absolute Auto 200 /uL (0-450); Eosinophils Percent Auto 2.2 % (2-4); Hematocrit 39.7 % (36-46); Hemoglobin 13.2 g/dL (12.0-16.0); Lymphocytes Absolute Auto 3300 /uL (1100-4500); Lymphocytes Percent Auto 43.3 % (25-40); Mean Corpuscular HGB Conc 33.4 % (30-36); Mean Corpuscular Hemoglobin 31.1 PG (26-34); Mean Corpuscular Volume 93.3 fL (80-100); Monocytes Absolute Auto 500 /uL (0-900); Monocytes Percent Auto 6.4 % (3-14); Neutrophils Absolute Auto 3600 /uL (1500-7000); Neutrophils Percent Auto 47.3 % (50-75); Platelet Count 389 X10^3/uL (150-400); Red Blood Cell Count 4.25 X10^6/uL (4.0-5.2); Red Cell Distribution Width 13.7 % (11.6-14.8); White Blood Cell Count 7.5 X10^3/uL (4.5-11.0)
[2019-06-01 10:27] LABS: Appearance Urine UA CLEAR; Bilirubin Urine UA NEGATIVE (NEGATIVE); Blood Urea Nitrogen 15 mg/dL (7-17); Calcium 9.5 mg/dL (8.4-10.2); Carbon Dioxide 26 mmol/L (22-32); Chloride 104 mmol/L (98-107); Color Urine UA YELLOW; Estimated Glomerular Filt Rate > 60.0 mL/min (>60); Glucose 116 mg/dL (80-110); Glucose Urine UA NEGATIVE (Negative); HEMOLYSIS < 15 (0-50); Ketones Urine UA NEGATIVE (NEGATIVE); Leukocyte Esterase Urine UA NEGATIVE (NEGATIVE); Nitrite Urine UA POSITIVE (Negative); Occult Blood Urine UA NEGATIVE (Negative); Potassium 3.6 mmol/L (3.4-5.1); Protein Urine UA NEGATIVE (Negative); Sodium 141 mmol/L (137-145); Urobilinogen Urine UA 0.2 E.U./dL (0.2)
[2019-06-01 10:47] LABS: Bacteria Urine Many (>30); Culture Indicated Urine Specimen Cultured; Squamous Epithelial Cell Urine 1-5 /HPF (0-5/HPF); WBC Urine 1-5/HPF (0-5/HPF)
== END ==
PROVIDERS: PCP Family Medicine; Referring Provider Family Medicine; Visit Provider Family Medicine
DX: R10.9 Unspecified abdominal pain (principal); Z79.1 Long term (current) use of non-steroidal anti-inflammatories (NSAID)
CPT/HCPCS: 36415; 80048; 81001; 85025; 87077; 87086; 87186

== ENCOUNTER → 2019-06-22 09:33 | Outpatient (CLI) | payer MEDICARE, OTHER, SELFPAY ==
[2019-02-02 08:26] VITALS: BMI 38.0
--- NOTE | 2019-06-22 09:36 | DI.RAD.S_ITS ---
PROCEDURE: XR LUMBAR SPINE 2-3V INDICATIONS: flank pain TECHNIQUE: 3 views of the lumbar spine were acquired. COMPARISON: None. FINDINGS: Bones: 5 [id number] vertebrae are present. Mild levoscoliosis. There is grade 1 anterolisthesis of L3 on L4. No vertebral body compression fractures. No suspicious bony lesions. There is degenerative disc disease, severe at T11-T12, T12-L1, L3-L4 and L4-L5, moderate at L2-L3 and L5-S1, mild at L1-L2. Moderate to severe facet arthropathy at [id number]. Soft tissues: Overlying bowel gas pattern is normal. No suspicious soft tissue calcifications. IMPRESSION: 1. Severe degenerative disc and facet disease in lumbar spine. 2. Mild levoscoliosis. Dictated by: Sherif Mart M.D. on 06/22/2019 at 12:47 Approved by: Sherif Mart M.D. on 06/22/2019 at 13:16
== END ==
PROVIDERS: PCP Family Medicine; Referring Provider Family Medicine; Visit Provider Family Medicine
DX: R10.9 Unspecified abdominal pain (principal); M51.34 Other intervertebral disc degeneration, thoracic region; M51.35 Other intervertebral disc degeneration, thoracolumbar region; M51.36 Other intervertebral disc degeneration, lumbar region; M51.37 Other intervertebral disc degeneration, lumbosacral region; M47.816 Spondylosis without myelopathy or radiculopathy, lumbar region; M41.9 Scoliosis, unspecified
CPT/HCPCS: 72100

== ENCOUNTER → 2020-04-04 10:52 | Outpatient (CLI) | payer MEDICARE, OTHER, SELFPAY ==
[2019-02-02 08:26] VITALS: BMI 38.0
[2020-04-04 12:33] LABS: BUN Creatinine Ratio 31.7 (6-22); Blood Urea Nitrogen 20 mg/dL (7-17); Calcium 9.1 mg/dL (8.4-10.2); Carbon Dioxide 29 mmol/L (22-32); Chloride 104 mmol/L (98-107); Estimated Glomerular Filt Rate > 60.0 mL/min (>60); Glucose 102 mg/dL (80-110); HEMOLYSIS < 15 (0-50); Potassium 3.8 mmol/L (3.4-5.1); Sodium 139 mmol/L (137-145)
[2020-04-04 12:49] LABS: Vitamin D 25 Hydroxy (D3) 25.8 ng/mL (30.0-100.0)
== END ==
PROVIDERS: PCP Student in an Organized Health Care Education/Training Program; Referring Provider Student in an Organized Health Care Education/Training Program; Visit Provider Student in an Organized Health Care Education/Training Program
DX: R00.0 Tachycardia, unspecified (principal); E55.9 Vitamin D deficiency, unspecified; Z78.0 Asymptomatic menopausal state; Z79.1 Long term (current) use of non-steroidal anti-inflammatories (NSAID)
CPT/HCPCS: 36415; 80048; 82306; 84443

== ENCOUNTER → 2020-04-18 08:12 | Outpatient (CLI) | payer MEDICARE, OTHER, SELFPAY ==
[2019-02-02 08:26] VITALS: BMI 38.0
--- NOTE | 2020-04-18 08:14 | DI.MG.S_ITS ---
BILATERAL DIGITAL SCREENING MAMMOGRAM 3D/2D WITH CAD: 04/18/2020 CLINICAL: Routine screening. Comparison is made to exams dated: 01/11/2019 mammogram, 12/16/2017 mammogram, and 09/05/2015 mammogram - [facility]. There are scattered fibroglandular elements in both breasts. Current study was also evaluated with a Computer Aided Detection (CAD) system. No significant masses, calcifications, or other findings are seen in either breast. There has been no significant interval change. IMPRESSION: NEGATIVE There is no mammographic evidence of malignancy. A 1 year screening mammogram is recommended. This exam was interpreted at Station ID: [id number]. NOTE: For mammograms, a report in lay terms will be sent to the patient. Approximately 15% of breast malignancies will not be visualized mammographically. In the management of a palpable breast mass, a negative mammogram must not discourage biopsy of a clinically suspicious lesion. Electronically Signed By: Moris raya/brock:04/18/2020 09:06:32 letter sent: Normal Exam ACR BI-RADS Category 1: Negative [id number]
== END ==
PROVIDERS: PCP Student in an Organized Health Care Education/Training Program; Referring Provider Student in an Organized Health Care Education/Training Program; Visit Provider Student in an Organized Health Care Education/Training Program
DX: Z12.31 Encounter for screening mammogram for malignant neoplasm of breast (principal); M85.851 Other specified disorders of bone density and structure, right thigh; Z78.0 Asymptomatic menopausal state; Z91.89 Other specified personal risk factors, not elsewhere classified
CPT/HCPCS: 77063; 77067; 77080

== ENCOUNTER → 2021-05-08 08:01 | Outpatient (CLI) | payer MEDICARE, OTHER, SELFPAY ==
[2019-02-02 08:26] VITALS: BMI 38.0
--- NOTE | 2021-05-08 | DI.MG.S_ITS ---
BILATERAL DIGITAL SCREENING MAMMOGRAM 3D/2D WITH CAD: 05/08/2021 CLINICAL: Routine screening. Comparison is made to exams dated: 04/18/2020 mammogram, 01/11/2019 mammogram, and 12/16/2017 mammogram - [facility]. There are scattered fibroglandular elements in both breasts. Current study was also evaluated with a Computer Aided Detection (CAD) system. There are benign calcifications in both breasts. There also are benign vascular calcifications in both breasts. No significant masses, calcifications, or other findings are seen in either breast. There has been no significant interval change. IMPRESSION: BENIGN There is no mammographic evidence of malignancy. A 1 year screening mammogram is recommended. This exam was interpreted at Station ID: [id number]. NOTE: For mammograms, a report in lay terms will be sent to the patient. Approximately 15% of breast malignancies will not be visualized mammographically. In the management of a palpable breast mass, a negative mammogram must not discourage biopsy of a clinically suspicious lesion. Electronically Signed By: Moris raya/brock:05/08/2021 09:00:34 letter sent: Normal Exam ACR BI-RADS Category 2: Benign Finding(s) 3342F
== END ==
PROVIDERS: PCP Student in an Organized Health Care Education/Training Program; Referring Provider Student in an Organized Health Care Education/Training Program; Visit Provider Student in an Organized Health Care Education/Training Program
DX: Z12.31 Encounter for screening mammogram for malignant neoplasm of breast (principal)
CPT/HCPCS: 77063; 77067

== ENCOUNTER 2022-01-16 08:39 | Day surgery (SDC) | payer MEDICARE, OTHER, SELFPAY ==
[2019-02-02 08:26] VITALS: BMI 38.0
[2022-01-12 10:42] VITALS: BMI 37.0
[2022-01-16] VITALS (12 sets, daily range): BP systolic 100–169; BP diastolic 47–77; PULSE 62–100; RESP 14–24; TEMP 35.3–37.1; O2SAT 95–100; BMI 37.0; BMI 36.1
--- NOTE | 2022-01-16 06:00 | DI.RAD.S_ITS ---
PROCEDURE: XR PELVIS 1-2V INDICATIONS: prosthesis placement TECHNIQUE: Intra-operative view of the pelvis and hip acquired. COMPARISON: [facility] [place], [place], XR PELVIS WITH LATERAL HIP RIGHT, 10/29/2021, 15:38. [facility], CR, XR HIP W PEL IF DONE RT 2V, 01/16/2022, 13:55. FINDINGS: Bones: Intraoperative devices prior to placement of arthroplasty prostheses are in expected positions. No fractures or suspicious bony lesions. Soft tissues: Overlying surgical retractors are present, along with other intraoperative changes. IMPRESSION: Hardware components are seen in expected positions. Approved by: Jaziel Dasilva M.D. on 01/16/2022 at 15:27
[2022-01-16] MEDS: VANCOMYCIN 1,000 MG/200 ML PIGGYBACK 200 MG IV (09:42)
[2022-01-16] MEDS: CELECOXIB 200 MG CAPSULE PO (09:42)
[2022-01-16] MEDS: PREGABALIN 75 MG CAPSULE PO (09:43)
--- NOTE | 2022-01-16 10:05 | P.OP_ITS ---
Operative Date/Time/Diagnoses Date of procedure: 01/16/22 Time of procedure: 11:00 Pre-op diagnosis: Right hip osteoarthritis with AVN Post-op diagnosis: same Procedure & Clinicians Procedure: Right total hip arthroplasty posterior approach Same procedure as scheduled: Yes Indications: The patient has had progressively worsening right hip pain with radiographic changes consistent with arthritis. Non-operative management has failed and the patient has requested total hip replacement. The risks, benefits and alternatives to surgery were discussed with the patient prior to proceeding. Risks discussed included, but were not limited to, failure to relieve pain, leg length discrepancy, dislocation, stiffness, infection, nerve damage, deep venous thrombosis, pulmonary embolism, stroke, coma, heart attack, permanent paralysis and , as well as the potential need for eventual revision of the prosthetic. 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 The patient received pre-operative antibiotics and was taken to the operating room and placed on the operative table in the left lateral decubitus position after satisfactory anesthesia. A data analytics developer out was performed. The right leg was prepared from the ankle to the iliac crest with ChloroPrep in the usual fashion and draped through sterile drapes. The hip was approached through an approximately 20 cm incision centered over the greater trochanter and curving gently posteriorly as it went proximally. This was carried sharply to the fascia peace, which was divided and retracted with a self retaining retractor. The trochanteric bursa was excised with care being taken to avoid the sciatic nerve, which was identified and protected throughout the case. The short external rotators were incised and the capsulomuscular flap was raised and tagged for later repair. The hip was dislocated, and a femoral neck osteotomy performed approximately 15 mm above the lesser trochanter. Retractors were placed around the femur. The canal was opened with a box cutting osteotome, followed by a T handled reamer and a lateralizing reamer. The chili pepper broach was then used, followed by sequential broaching until there was good stability of the broach in the femur. Retractors were placed to expose the acetabulum. The labrum and central soft tissues were removed. Reaming was performed initially going up in 2 mm increments, then 1 mm increments until good bite was obtained with an odd sized reamer. The cup 1 mm larger than the last reamer was then inserted using the appropriate anteversion guides. A trial neutral liner was placed. The broach was placed in the canal. A trial head and neck were then placed and the hip relocated and checked for leg length and stability. An intraoperative film confirmed the component position and no evidence of fracture. The patient was stable in the position of sleep, of squatting, and could be put through a range of motion with 45 degrees internal rotation without dislocation. At 90 degrees flexion, internal rotation to 70? was possible before dislocation. This was felt to be satisfactory and the appropriate components were opened, and the trials were removed. The acetabulum was further stabilized with a single screw. The acetabular liner was impacted into position. The final stem was then impacted into the prepared femoral canal. A brief Betadine soak was performed while trialing with head options. The hip was meticulously irrigated with normal saline. Finally the femoral head was impacted onto the stem. The acetabulum was cleared of all material and the hip relocated one final time. The capsulomuscular flap was then repaired to the greater trochanter though an awl hole using the tag sutures. The short external rotators were repaired with a nonabsorbable suture. A deep drain was placed and brought out anteriorly. The fascia peace was closed with Vicryl. The subcutaneous layer was closed with barbed sutures and SteriStrips. An Aquacel Ag dressing was applied and the patient was taken to recovery having tolerated the procedure well. Complications: none Post-operative Condition: stable Disposition: Acute Care Plan for aftercare: The patient will be maintained on a standard total hip replacement protocol with weight bearing as tolerated and posterior hip precautions. The patient will receive Aspirin and sequential compression devices for DVT prophylaxis. The patient will be discharged home when safe for the home environment.
--- NOTE | 2022-01-16 10:05 | PM.PREOP ---
Pre-operative Note COVID-19 COVID-19 status: Negative Interval Note History & Physical reviewed/Exam performed by Physician: Yes Changes to H&P: No
[2022-01-16] MEDS: LACTATED RINGERS 1,000 ML 42 ML IV ×2 (10:30→12:33)
[2022-01-16] MEDS: CEFAZOLIN 2 GM/100 ML PREMIX 100 ML IV ×2 (11:35→20:04)
[2022-01-16] MEDS: TRANEXAMIC ACID 1,000 MG VIAL 1000 MG INJ ×2 (11:40→13:27)
[2022-01-16] MEDS: BUPIVACAINE LIPOSOME 266 MG/20 ML VIAL INJ (11:55)
[2022-01-16] MEDS: BUPIVACAINE 0.25% (PF) 60 ML, EPINEPHrine 0.3 MG INJ (11:57)
--- NOTE | 2022-01-16 11:59 | SUR.OPER ---
Lateral on padded OR bed. Gel axillary roll. Arms secured on padded armboard with pillow supporting top arm. Padded hip positioner braces x4 - anterior and posterior chest and pelvis. Additional gel pad used anterior pelvis. Gel pad under bottom leg from knee to foot and secured with tape over sheet.
--- NOTE | 2022-01-16 13:45 | DI.RAD.S_ITS ---
PROCEDURE: XR HIP W PEL IF DONE RT 2V INDICATIONS: RIGHT TOTAL POSTERIOR HIT TECHNIQUE: AP pelvis and lateral view of the right hip acquired. COMPARISON: [facility], [facility], XR PELVIS 1-2V, 01/16/2022, 12:30. FINDINGS: Bones: Patient is status post right hip arthroplasty, with hardware components in expected positions. The hip joint appears congruent. The visualized bony structures appear intact. Soft tissues: Overlying postoperative changes are noted. No suspicious soft tissue densities. IMPRESSION: Normal alignment after right total hip arthroplasty, frontal and lateral views. Dictated by: Ronaldo Martins M.D. on 01/16/2022 at 15:25 Approved by: Ronaldo Martins M.D. on 01/16/2022 at 15:27
[2022-01-16] MEDS: LACTATED RINGERS 1,000 ML 125 ML IV (16:03)
[2022-01-16] MEDS: OXYCODONE IR 10 MG TABLET PO ×2 (16:11→21:02)
[2022-01-16] MEDS: OXYCODONE IR 5 MG TABLET PO (18:18)
[2022-01-16] MEDS: ACETAMINOPHEN 325 MG TABLET 650 MG PO (18:18)
[2022-01-16] MEDS: IBUPROFEN 400 MG TABLET PO (18:21)
[2022-01-16] MEDS: DOCUSATE 100 MG CAPSULE PO (20:50)
[2022-01-16] MEDS: diphenhydrAMINE 25 MG TABLET PO (20:50)
[2022-01-17] MEDS: ACETAMINOPHEN 325 MG TABLET 650 MG PO ×3 (00:06→13:03)
[2022-01-17] MEDS: OXYCODONE IR 10 MG TABLET PO ×5 (00:06→13:04)
[2022-01-17] MEDS: IBUPROFEN 400 MG TABLET PO ×3 (00:06→13:04)
[2022-01-17] MEDS: LACTATED RINGERS 1,000 ML 125 ML IV (00:11)
[2022-01-17 00:50] VITALS: BP 106/48; PULSE 65; RESP 18; TEMP 36.1; O2SAT 95
[2022-01-17] MEDS: CEFAZOLIN 2 GM/100 ML PREMIX 100 ML IV (03:08)
[2022-01-17 06:16] VITALS: BP 98/68; PULSE 77; RESP 17; TEMP 36.6; O2SAT 97
[2022-01-17 08:15] VITALS: BP 97/47; PULSE 68; RESP 16; TEMP 36.2; O2SAT 98
--- NOTE | 2022-01-17 08:25 | P.DS_ITS ---
History of Present Illness History of Present Illness Date Patient Seen: 01/17/22 Time Patient Seen: 08:25 Chief complaint: right total hip Narrative: Operative Date/Time/Diagnoses Date of procedure: 01/16/22 Time of procedure: 11:00 Pre-op diagnosis: Right hip osteoarthritis with AVN Post-op diagnosis: same Procedure & Clinicians Procedure: Right total hip arthroplasty posterior approach Same procedure as scheduled: Yes Indications: The patient has had progressively worsening right hip pain with radiographic changes consistent with arthritis. Non-operative management has failed and the patient has requested total hip replacement. The risks, benefits and alternatives to surgery were discussed with the patient prior to proceeding. Risks discussed included, but were not limited to, failure to relieve pain, leg length discrepancy, dislocation, stiffness, infection, nerve damage, deep venous thrombosis, pulmonary embolism, stroke, coma, heart attack, permanent paralysis and , as well as the potential need for eventual revision of the prosthetic. Surgeon: Sheyla Barclay Industrial Roofer Helper: Trudy Bishop Anesthesia Type: General and Spinal Operative Notes Findings: Severe right hip avascular necrosis with complete collapse of the femoral head and a loose articular cartilage and bony fragment, adequate bone, adequate stability Closure Type: primary Specimen(s): none sent Prosthetic devices, grafts, tissues, transplants, or devices: Barclay [employer] Nephew R3 48 mm cup, neutral poly liner,one 6.5 mm screw, size 6 standard offset anthology, 32 x -3 CO femoral head Applied: drain(s) Estimated Blood Loss (mL): 250 Blood products transfused: none Discharge Providers Provider Discharge Date: 01/17/22 Primary care physician: Ivett Figueredo PA-C Consults: 01/16/22 06:00 Consult to Anesthesiology Routine Comment: Consulting Provider: Anesthesiologist Reason for consultation: Regional block for post operative pain control 01/16/22 14:57 Consult to Discharge Planning Routine Comment: Consult to Physical Therapy Evaluate & Treat Comment: Physician Instructions: post op YARELIS protocol Consult to Respiratory Therapy Evaluate & Treat Comment: Physician Instructions: Evaluate and treat Discharge provider: Beverly Noriega PA-C Summary Hospital Course Discharge Diagnosis: Right hip osteoarthritis w/ AVN, s/p right total hip arthroplasty Hospital Course: Ms Patel's hospital course was unremarkable. On POD# 1 she was feeling well and wanted to go home. She has a h/o bladder prolapse and required a urinary catheter during surgery; she voids without catheterization at home. She was e ating without difficulty and her pain was well-controlled with oral medication. She was evaluated by PT prior to discharge. Exam Vital Signs (past 8 hours): - 01/17/22 00:50 01/17/22 06:16 01/17/22 08:15 Temperature 96.9 F L 97.8 F 97.1 F L Pulse Rate 65 77 68 Respiratory Rate 18 17 16 Blood Pressure 106/48 L 98/68 97/47 L Pulse Oximetry 95 97 98 Oxygen Flow Rate 0 0 0 Oxygen Delivery Method Room Air Oxygen Flow Rate 0 Narrative Exam Narrative: 3/5 strength in hip flexors; 4/5 quadriceps and hamstrings; 5/5 DF, PF, EHL on right. Sensation to light touch intact throughout RLE. Calves soft, compressible, nontender and without palpable cords or masses. Aquacel dressing CDI. [facility] Medical History (Updated 04/20/20 @ 12:57 by Ceasar Juarez MD) Acute gangrenous cholecystitis Bilateral cataracts Diverticulitis (01/22/11) Edema GERD (gastroesophageal reflux disease) Hypercholesterolemia Osteoarthritis (01/22/11) Pneumonia (~07/2014) RLS (restless legs syndrome) Surgical History (Updated 01/17/22 @ 08:31 by Beverly Noriega PA-C) History of bilateral knee arthroplasty History of colon resection History of hysterectomy History of orthopedic surgery (02/02/19) Hx laparoscopic cholecystectomy (~07/2014) Hx of hernia repair Social History household members: children Smoking Status: Former smoker alcohol intake: current Discharge Assessment & Plan Assessment and Plan Assessment: Right hip osteoarthritis w/ AVN, s/p right total hip arthroplasty Plan of Treatment: Discharge home today if cleared by PT and voiding independently. Multimodal pain control, ASA 81 mg BID x 6 weeks for VTE prophylaxis, outpt PT, f/u in 2 weeks. Discharge Plan Discharge Plan Patient Disposition: Home Discharge orders & Medications Discharge Orders: Discharge (Order); Ordered 01/17/22 Ordered By: Beverly Noriega Prescriptions: New oxycodone 5 mg Tablet 5 mg PO Q4H PRN (Reason: Pain, Moderate (4-6)) Qty: 60 0RF aspirin 81 mg Tablet,Delayed Release (Dr/Ec) 81 mg PO BID Qty: 90 0RF docusate sodium 100 mg Capsule 100 mg PO BID PRN (Reason: constipation) Qty: 60 2RF Continued diclofenac sodium 75 mg tablet,delayed release (DR/EC) 150 mg PO QAM Qty: 180 1RF Rx Instructions: PT WILL NEED TO BE SEEN BEFORE NEXT FILL 12/12/20 estradiol 0.5 mg tablet 0.5 mg PO Q DAY Qty: 90 0RF Rx Instructions: pt will need to be seen before next fill 12/19/20 06/26/21 omeprazole 20 mg capsule,delayed release(DR/EC) 20 mg PO DAILY Qty: 90 1RF Rx Instructions: Take one capsule by mouth once a day. acetaminophen [Acetaminophen Extra Strength] 500 mg Tablet 1,000 mg PO DAILY PRN (Reason: Pain) nortriptyline 25 mg capsule 50 mg PO DAILY Follow up/Referrals: Ivett Figueredo PA-C [Primary Care Provider] - Sheyla Barclay MD [Physician] - As previously scheduled (Follow up w/ Trudy Bishop PA-C, on 01/28/2022 @ 2:20 pm at [facility] office in [place].) Diet/Activity/Treatments Diet: Diet as Tolerated Activity: Weight bearing as tolerated on right leg. Posterior hip precautions. Cold/Heat Therapy: Ice to hip as needed for pain. Skin/Wound/Dressing Care Report to your healthcare provider any signs of infection, such as:: chills, fever, night sweats, unusual drainage and unusual redness Dressing: May shower. Leave Aquacel dressing in place until follow up in office. No bathing or otherwise soaking incision. Visit Report/Discharge Packet Instructions: DI for Hip Replacement Stand Alone Forms: Surgery Discharge Discharge Data Primary Care Provider: Ivett Figueredo Attending Provider: Sheyla Barclay Quality VTE Deep Vein Thrombosis/Pulmonary Embolism Present on Admission: No
[2022-01-17 09:13] LABS: Appearance Urine UA CLEAR; Bilirubin Urine UA NEGATIVE (NEGATIVE); Color Urine UA YELLOW; Glucose Urine UA NEGATIVE (Negative); Ketones Urine UA NEGATIVE (NEGATIVE); Leukocyte Esterase Urine UA TRACE (NEGATIVE); Nitrite Urine UA NEGATIVE (Negative); Occult Blood Urine UA NEGATIVE (Negative); Protein Urine UA TRACE (Negative); Urobilinogen Urine UA 0.2 E.U./dL (0.2)
[2022-01-17] MEDS: DOCUSATE 100 MG CAPSULE PO (09:14)
[2022-01-17] MEDS: NORTRIPTYLINE HCL 25 MG CAPSULE 50 MG PO (09:14)
[2022-01-17] MEDS: PANTOPRAZOLE DR 20 MG TABLET PO (09:14)
[2022-01-17] MEDS: ASPIRIN EC 81 MG TABLET PO (09:15)
[2022-01-17 09:34] LABS: pH Urine UA 5.5 (4.5-8.0)
--- NOTE | 2022-01-17 09:45 | PT.IIE ---
Current Diagnoses Unilateral primary osteoarthritis, right hip (01/16/22) Presence of unspecified artificial hip joint (01/16/22) Surgery Performed Operation Date: 01/16/22 10:45 Actual Procedures p Total Hip Arthroplasty(Right) - Sheyla Barclay MD Surgical History (Last Updated 01/12/22 @ 11:06 by Angelita Lama RN) History of bilateral knee arthroplasty History of colon resection History of hysterectomy History of orthopedic surgery (02/02/19) Hx laparoscopic cholecystectomy (~07/2014) Hx of hernia repair Medical History (Last Updated 04/06/20 @ 16:44 by Ceasar Juarez MD) Acute gangrenous cholecystitis Bilateral cataracts Diverticulitis (01/22/11) Edema GERD (gastroesophageal reflux disease) Hypercholesterolemia Osteoarthritis (01/22/11) Pneumonia (~07/2014) RLS (restless legs syndrome) Physical Therapy Inpatient Evaluation/Re-Eval M1 PT/OT-IP Prior Functional Status Start: 01/17/22 12:31 Freq: NEEDED Status: Active Protocol: Document 01/17/22 09:45 AB (Rec: 01/17/22 12:44 AB [id number]) Medical Review Prior Functional Status Medical History Reviewed Yes Communication able to make needs known Mobility and Gait pt stated that she is modified independent with all mobilities and ambulation using a 4WW but has been using a FWW for the past 2 weeks Social History Household Members children Living Arrangements Mobile home Number of Floors (Floors) One Floor Number of Stairs To Enter/Railing? 3 steps R rail and L handle to enter the house Home Environment Standard Height Toilet,Walk in Shower Home Equipment Front Wheel Walker,Four Wheel Walker,Bedside Commode,Hand Held Shower Additional Social History Comment pt stated that her son will stay with her for ~1 month to assist her at home but her sister will pick her up and assist her initially pt has a recliner at home M2 PT-IP Current Condition Start: 01/17/22 12:31 Freq: NEEDED Status: Active Protocol: Document 01/17/22 09:45 AB (Rec: 01/17/22 12:44 AB [id number]) Physical Therapy Current Condition Current Condition Evaluation Date 01/17/22 Treatment Diagnosis s/p R YARELIS posterior approach; difficulty in walking Onset Date 01/16/22 M3 PT-IP Subjective Start: 01/17/22 12:31 Freq: NEEDED Status: Active Protocol: Document 01/17/22 09:45 AB (Rec: 01/17/22 12:44 AB [id number]) Subjective Physical Therapy Visit Type Type Initial Evaluation Visit Start Time 09:45 Visit Stop Time 10:46 Total Visit Minutes 61 Number of PURCHASER Visits 0 Physical Therapy Visit Comments Patient Comments agreeable to do PT Therapy Pain Assessment Pain When Pain Assessed At Rest Pain Present Pain Present Pain Reported Location Right Hip Intensity 4 Scale Used Numeric (0 - 10) Pain Management Techniques Apply Cold,Elevation, Modification of Treatment,Re- positioning,Timing of Activity with Medications M4 PT-IP Mobility and Gait Start: 01/17/22 12:31 Freq: NEEDED Status: Active Protocol: Document 01/17/22 09:45 AB (Rec: 01/17/22 12:44 AB [id number]) PT-Bed Mobility Assessment Supine to Sit Supine to Sit Maximum Assistance Scooting Scooting to Edge of Bed Maximum Assistance PT-Transfer Assessment Sit to and From Stand Sit to and from Stand Moderate Assistance,Maximum Assistance,1 Person Assistance ,Use of Upper Extremities Equipment Transfer Assistive Device Gait Belt,Front Wheeled Walker Orthotic/Prosthetic Devices or Brace: No Transfers Transfer Destination Chair Transfer Technique Stand Step Pivot Transfer Ability Level of Assist Moderate Assistance,1 Person Assistance,Use of Upper Extremities Comments Mobility Comments educated pt regarding posterior hip precautions and pt requires cues to recall. pt can get anxious easily affecting following instructions and safety awareness. completed supine to sit x 2 attempts max A provided and max cues. required max A for scooting to EOB. pt stated that she has a recliner at home and may just sleep on it for now. completed sit to stand max A and max cues. pt with tendency to IR RLE and needs assistance. educated pt on techniques for sit to stand. completed sit to stand from EOB x 6 reps requiring mod to max A and max cues. pt ambulated in room ~ 25 ft using FWW mod A. pt sat on chair. completed sit <>stand x 4 reps mod A and max cues. positioned pt on chair. call light and table placed within reach. informed pt regarding caregiver training and stated that her son lives at [place] and will not come in to the hospital just for the training. stated that her sister will pick her up and will assist her to get into the house. arranged for pt's sister to come in for caregiver training at ~ 1 pm. Gait Assessment Gait Gait Assistance Required: Moderate Assistance Distance (Feet) 25 Able to Maintain Weight Bearing Status Yes During Gait Assistive Devices Assistive Device Gait Belt,Front Wheeled Walker Orthotic/Prosthetic Devices or Brace: No Gait Deviations General Gait Pattern Antalgic,Decreased Stride Length,Decreased Feet Clearance,Step-to Gait Factors Limiting Gait Function Factors Limiting Gait Function Decreased Activity Tolerance, Decreased Strength,Difficulty Following Directions,Limited Range of Motion,Pain,Poor Balance,Poor Safety Awareness PT-Balance Assessment Sitting Balance and Reactions Static Sitting Balance Ability Good Dynamic Sitting Balance Ability Good Standing Balance and Reactions Static Standing Balance Ability Fair Dynamic Standing Balance Ability Poor Device Used FWW M5 PT-IP Objective Assessments Start: 01/17/22 12:31 Freq: NEEDED Status: Active Protocol: Document 01/17/22 09:45 AB (Rec: 01/17/22 12:44 AB [id number]) Orientation Orientation/Cognition Level of Alertness Alert Orientation Name,Place,Situation Language Function Ability No Deficits Noted Safety Awareness Decreased Safety Awareness Memory Description Short Term Impaired Gross Range of Motion Lower Extremity ROM Assessment Within Functional Limits Strength Lower Extremity Strength Assessment Right Impaired Hip 3-/5 Knee 3+/5 Coordination Assessment Gross Coordination Gross Coordination WNL Sensation Assessment Sensation Gross Sensation WNL Muscle Tone Muscle Tone WNL Yes M6 PT-IP Treatment Start: 01/17/22 12:31 Freq: NEEDED Status: Active Protocol: Document 01/17/22 09:45 AB (Rec: 01/17/22 12:44 AB [id number]) Physical Therapy Treatment Education Education Provided Precautions,Weight Bearing Status,Post-Op Packet,Safety M7 PT-IP Assessment and Plan Start: 01/17/22 12:31 Freq: NEEDED Status: Active Protocol: Document 01/17/22 09:45 AB (Rec: 01/17/22 12:44 AB [id number]) PT Summary Assessment and Plan Potential Rehabilitation Potential Fair Status of Condition at Evaluation Evolving Summary Impairments Pain,ROM,Strength,Balance, Coordination,Sensation,Tone, Cognition,Bed Mobility, Transfers,Gait,Activity Tolerance Assessment Summary pt requiring mod to max A and max cues with mobility using FWW. caregiver training set up for this afternoon. will continue to assess progress. Goals Bed Mobility Goal Standby Assistance Transfer Goal Standby Assistance,Front Wheeled Walker Gait Goal Standby Assistance,Front Wheel Walker Gait Distance 150 Other Goals up/down 3 steps 2 rails SBA Days to Meet Goals 5 Frequency of Treatment Frequency Of Treatment Twice a Day Treatment Plan Physical Therapy Treatment Plan Bed Mobility Training,Transfer Training,Gait Training, Therapeutic Exercise,Balance Retraining,Post Op Education, Discharge Planning,Hot or Cold Pack,Neuromuscular Re-ed, Coordination Retraining,Manual Therapy Precautions Posterior Hip Precautions No Hip Flexion > 90 degrees,No Hip Internal Rotation,No Hip Adduction Weight Bearing Status Weight Bearing Status Weight Bear as Tolerated Allowed Weight Bearing Amount (enter % RLE WBAT or #) (%) Recommendations To Nursing Amount of Assist Needed 1 Person Assist Discharge Recommendations PT Discharge Recommendations Home with 19/10 Assist Available,Home Health Transportation Needs at Discharge Private Vehicle
[2022-01-17 10:17] LABS: Bacteria Urine None Seen; Culture Indicated Urine Specimen Cultured; RBC Urine None Seen (0-5/HPF); WBC Urine 1-5/HPF (0-5/HPF)
--- NOTE | 2022-01-17 11:54 | CM.DANOTE ---
DCP: Case received, EMR reviewed and met with patient. Introduced self and role. Was able to obtain information regarding patient's baseline activity status prior to her surgery, as well as her current living situation. DCP assessment completed with information currently available. Patient is a 71 year old female who admitted yesterday morning to the care of the orthopedic team. PCP: Dr. Figueredo. Payer: confirmed: Medicare/Commercial insurance. Patient came to the hospital via private vehicle for a surgical procedure. Patient had right total hip arthoplasty. Patient has history of osteoarthritis. Met with patient in her room. She is pleasant, alert and oriented. Confirmed that she resides in [place] At her baseline, she is independent, lives alone, works at [employer] on the [place]. Confirmed that her son, Jian, will be staying with her and assisting her as needed. Patient does have a walker for home use. P: Patient has discharge orders for home pending working with Dong Rodriguez RN/Natural Resources Faculty Member Discharge Planning/Care Management CM Discharge Assessment Start: 01/17/22 11:06 Freq: Status: Active Protocol: Document 01/17/22 11:06 (Rec: 01/17/22 11:12 [id number]) Discharge Planning Assessment Assigned Puff Ironer Kesha Rodriguez RN/Natural Resources Faculty Member Advance Directives? Yes Advance Directives on File No History Provided By Patient,Medical Record Prior Living Arrangements Mobile home Household Members children Type of transporation used prior to Drives own vehicle admit Independent with ADL's Yes Is patient alert and oriented? Yes Caregiver for Another No DME Already Rented / Owned FWW / Walker Patient/Family Preference OP PT Therapy Comment Son, Jian, will be staying with patient and assisting.Pt plans to DC back to [facility] today w/ outpt f/u and dtr to assist once home. Ortho PA has begun DC process pending therapy team clears pt for DC today. Likely no barriers to safe DC home, pending progress w/ therapy team today. Discharge Plan Home Transportation Arrangement Family Referrals Initiated None needed Whiteboard Updated in Patient Room with Yes name and ext. # of Puff Ironer Review Status In Process Next Review Type Continued Stay Review Pre-Anesthesia Assessment Start: 01/12/22 10:41 Freq: Status: Complete Protocol: Document 01/12/22 10:42 CAB (Rec: 01/12/22 11:55 [facility] [id number]) Pre-Anesthesia Assessment Preferred Name Pranav Patient Information Reviewed Via Phone Assessment Assessment Completed With Patient Diagnostic Results BMP/CMP,CBC,Urinalysis Comment Outside labs scanned, ECG done , not here, SHELIA narvaez @ [place] 01/17 Primary Care Provider Ivett Figueredo Seen Specialist in Last 12 Months Yes Specialist Seen Orthopedist Primary Language Kinyarwanda Preferred Language Kinyarwanda [employer] Setter Honing Required No Height 5 ft Weight 190 lb Body Mass Index (BMI) 37.0 Hearing Ability Normal Visual Assist Glasses Dentition Type Teeth, Natural Present,Teeth, Missing Barriers to Learning None Other Aids No Hx Anesthesia Reactions Yes: Difficulty with spinal attempt knee surgery 02/02/19 Hx Family Anesthesia Reaction No Hx Malignant Hyperthermia No Hx Blood Transfusions No Anesthesia Review Requested No Heater Helper No alcohol intake current alcohol intake frequency holidays/special occasions only Smoking Status Former smoker how long ago did patient quit smoking Quit 35 years ago Substance Use Type does not use,other Pain Present Pain Reported Musculoskeletal Symptoms Abnormal Gait,Difficulty Walking,Joint Pain History of Falling (Recent or History of Yes ) Patient is completely paralyzed or No completely immobile Prosthesis or Orthotic Device Front Wheel Walker Mental Status Oriented to own ability Is patient on oxygen? No Does patient have HOLLIS/SOB No Hx Sleep Apnea No CPAP/BIPAP use not prescribed Currently Taking a Beta Dl No Can You Climb a Flight of Stairs Without Yes SOB Hx Chest Pain No Hx SOB No Hx Syncope or Dizziness No Anti-Coagulant Therapy No Has a Historical Site Guide No Cardiac Testing No Hx Pacemaker/ICD No Pacemaker Rep Required? No Cardiac Clearance Received No Diet Type At Home Regular dysphagia No Gastrointestinal Symptoms Reflux Bladder Pattern Frequency,Nocturia Urinary Catheter Present No Hx Urinary Self Catheterization No Diabetes No Patient No Lactating No Hx Drug Resistant Organism No Presence of External or Internal Medical Yes: Bilateral knee prosthesis Devices , right kneew Have you had any close contact with No someone diagnosed with COVID-19? Received a COVID vaccine? Yes Received all doses? Yes Marital Status / Lives With children Prior Living Arrangements Mobile home Number of Floors (Floors) One Floor Support System Child/Children Does the Patient Have Assistance After Yes: Son lives w/pt and will Surgery assist with care Patient Discharge Plan Description Return Home Comment Lives on [facility]. Pt not advised on length of stay per surgeon Feels Safe in Current Environment Yes Been Physically Hurt or Threatened By a No Person in Current Environment Do you have thoughts of harming yourself None or others? Are you currently considering suicide? No Do you have a plan to hurt yourself or No Plan others? Do You Have Any Spiritual Beliefs That No May Affect Your HC Choices? Do You Have Any Cultural Practices That No May Affect Your HC Choices? Comment Mosque Who Can We Speak to About Patient's Care Family, friends Identifying Code for Release of Patient Declines to issue Information Health Care Proxy/Next of Kin Jian (son) Health Care Proxy Emergency Contact Name Sami (daughter) Emergency Contact Advance Directives? Yes Power of Slat Basket Maker Machine No Power of Slat Basket Maker Machine Name Jian Power of Slat Basket Maker Machine PAC Instructions Do not shave/clip surgical site,Durable medical equipment ,Medications to take/avoid, Nasal antibiotic,No ETOH/ petroleum product on skin DOS, NPO,Post-op transportation, Sensory aids,Sturdy shoes/ comfortable clothes,Do not bring valuables and remove jewelry
[2022-01-17 12:16] VITALS: BP 96/54; PULSE 76; RESP 16; TEMP 35.9; O2SAT 97
--- NOTE | 2022-01-17 12:58 | PT.IPTN ---
Current Diagnoses Unilateral primary osteoarthritis, right hip (01/16/22) Presence of unspecified artificial hip joint (01/16/22) Surgery Performed Operation Date: 01/16/22 10:45 Actual Procedures p Total Hip Arthroplasty(Right) - Sheyla Barclay MD Physical Therapy Treatment Note M2 PT-IP Current Condition Start: 01/17/22 12:31 Freq: NEEDED Status: Discharge Protocol: Document 01/17/22 09:45 AB (Rec: 01/17/22 12:44 AB [id number]) Physical Therapy Current Condition Current Condition Evaluation Date 01/17/22 Treatment Diagnosis s/p R YARELIS posterior approach; difficulty in walking Onset Date 01/16/22 M3 PT-IP Subjective Start: 01/17/22 12:31 Freq: NEEDED Status: Discharge Protocol: Document 01/17/22 12:32 KS (Rec: 01/17/22 14:22 KS [id number]) Subjective Physical Therapy Visit Type Type Treatment Note Visit Start Time 12:32 Visit Stop Time 12:58 Total Visit Minutes 26 Notes Sister present for caregiver training Number of ASPARAGUS BUNCHER Visits 1 Physical Therapy Visit Comments Patient Comments agreeable to do PT Therapy Pain Assessment Pain When Pain Assessed After Treatment Pain Present Pain Present Pain Reported Location Right Hip Scale Used not quantified M4 PT-IP Mobility and Gait Start: 01/17/22 12:31 Freq: NEEDED Status: Discharge Protocol: Document 01/17/22 12:32 KS (Rec: 01/17/22 14:22 KS [id number]) PT-Transfer Assessment Sit to and From Stand Sit to and from Stand Contact Guard Assistance,1 Person Assistance,Use of Upper Extremities Equipment Transfer Assistive Device Gait Belt,Front Wheeled Walker Orthotic/Prosthetic Devices or Brace: No Transfers Transfer Destination Bed,Wheelchair Transfer Technique Pt ambulated w/ FWW Transfer Ability Level of Assist Contact Guard Assistance,1 Person Assistance,Use of Upper Extremities Comments Mobility Comments Pt in w/c upon arrival w/ sister in room. Pt feeling very eager to d/c home. Able to recall 3/3 precautions. W/c to practice stairs for energy conservation. Pt CGA for sit< >stand w/ FWW and her sister was able to assist and apply gaitbelt. Pt ascended/ descended 3 steps w/ BHR and CGA and cues for leg sequencing w/ sister providing assistance. After stair training, pt required seated rest break. She was able to ambulate remaining 40 ft to room and bed, but c/o nausea from high level of pain following. Left in bed w/ RN aware of pain. Gait Assessment Gait Gait Assistance Required: Contact Guard Assist,1 Person Assist Distance (Feet) 40 Able to Maintain Weight Bearing Status Yes During Gait Assistive Devices Assistive Device Gait Belt,Front Wheeled Walker Orthotic/Prosthetic Devices or Brace: No Gait Deviations General Gait Pattern Antalgic,Decreased Stride Length,Decreased Feet Clearance,Step-to Gait Factors Limiting Gait Function Factors Limiting Gait Function Decreased Activity Tolerance, Decreased Strength,Difficulty Following Directions,Limited Range of Motion,Pain,Poor Balance,Poor Safety Awareness Comments Gait Comments Able to ambulate w/ FWW CGA but limited to short distances due to pain. Stair Climbing Assessment Evaluation Level of Assist On Stairs Contact Guard Assistance,1 Person Assistance Devices Stair Climbing Assistive Devices Left Railing,Right Railing Technique/Endurance Stair Climbing Direction Ascend and Descend Stair Climbing Technique Step to Step Number of Steps Climbed 3 Stair Climbing Set # Repetitions (reps) 1 Comments Stair Climbing Comments Pt able to ascend/descend 3 steps w/ BHR and step to pattern w/ cues for leg sequencing w/ sistwer providing CGA. Pt feels capable of completing 3 steps to enter her home. PT-Balance Assessment Sitting Balance and Reactions Static Sitting Balance Ability Good Dynamic Sitting Balance Ability Good Standing Balance and Reactions Static Standing Balance Ability Good Dynamic Standing Balance Ability Fair Device Used FWW M5 PT-IP Objective Assessments Start: 01/17/22 12:31 Freq: NEEDED Status: Discharge Protocol: Document 01/17/22 09:45 AB (Rec: 01/17/22 12:44 AB [id number]) Orientation Orientation/Cognition Level of Alertness Alert Orientation Name,Place,Situation Language Function Ability No Deficits Noted Safety Awareness Decreased Safety Awareness Memory Description Short Term Impaired Gross Range of Motion Lower Extremity ROM Assessment Within Functional Limits Strength Lower Extremity Strength Assessment Right Impaired Hip 3-/5 Knee 3+/5 Coordination Assessment Gross Coordination Gross Coordination WNL Sensation Assessment Sensation Gross Sensation WNL Muscle Tone Muscle Tone WNL Yes M6 PT-IP Treatment Start: 01/17/22 12:31 Freq: NEEDED Status: Discharge Protocol: Document 01/17/22 12:32 KS (Rec: 01/17/22 14:22 KS [id number]) Physical Therapy Treatment Education Education Provided Precautions,Weight Bearing Status,Post-Op Packet,Safety M7 PT-IP Assessment and Plan Start: 01/17/22 12:31 Freq: NEEDED Status: Discharge Protocol: Document 01/17/22 12:32 KS (Rec: 01/17/22 14:22 RI [id number]) PT Summary Assessment and Plan Potential Rehabilitation Potential Fair Summary Impairments Pain,ROM,Strength,Balance, Coordination,Sensation,Tone, Cognition,Bed Mobility, Transfers,Gait,Activity Tolerance Progress Towards Goals Progressing Toward Goals,Slow Progress due to Pain Assessment Summary Pt progressing, requiring CGA for mobility, ambulation, transfers, and stairs. Limited to small amount of activity and ambulation due to high level of pain, but pt very much wants to go home and states her son will assist her . Pts sister completed caregiver training and was able to provide all necessary assist and cues and confirms she will be able to relay instructions to pts son. Pt will require HHPT or OPPT to improve strength, stability, and activity tolerance. Goals Bed Mobility Goal Standby Assistance Transfer Goal Standby Assistance,Front Wheeled Walker Gait Goal Standby Assistance,Front Wheel Walker Gait Distance 150 Other Goals up/down 3 steps 2 rails SBA Days to Meet Goals 5 Frequency of Treatment Frequency Of Treatment Twice a Day Treatment Plan Physical Therapy Treatment Plan Bed Mobility Training,Transfer Training,Gait Training, Therapeutic Exercise,Balance Retraining,Post Op Education, Discharge Planning,Hot or Cold Pack,Neuromuscular Re-ed, Coordination Retraining,Manual Therapy Precautions Posterior Hip Precautions No Hip Flexion > 90 degrees,No Hip Internal Rotation,No Hip Adduction Weight Bearing Status Weight Bearing Status Weight Bear as Tolerated Allowed Weight Bearing Amount (enter % RLE WBAT or #) (%) Recommendations To Nursing Amount of Assist Needed 1 Person Assist Discharge Recommendations PT Discharge Recommendations Home with 19/10 Assist Available,Home Health, Outpatient PT Transportation Needs at Discharge Private Vehicle
[2022-01-17] MEDS: ONDANSETRON 4 MG ODT PO (13:34)
--- NOTE | 2022-01-17 13:57 | PC.NURSE ---
bishop d/c'd at 0930. d/c orders after PT. 1300: no void yet, notified- states ok for her to d/c home. sister here to pick her up. extra pads/pullups provided as [place] see d/c.
== END 2022-01-17 13:40 | disposition home or self-care (01) ==
LOC: OR 08:41 → AC 14:58
PROVIDERS: PCP Physician Assistant Medical; Referring Provider Orthopaedic Surgery; Visit Provider Orthopaedic Surgery
PROC: 0SR90JZ Replacement of Right Hip Joint with Synthetic Substitute, Open Approach (ICD-10-PCS; CPT 27130; principal; 2022-01-16 10:45)
DX: M16.11 Unilateral primary osteoarthritis, right hip (principal); K21.9 Gastro-esophageal reflux disease without esophagitis; E78.5 Hyperlipidemia, unspecified; G25.81 Restless legs syndrome; E66.9 Obesity, unspecified; M87.051 Idiopathic aseptic necrosis of right femur; M24.051 Loose body in right hip; Z68.37 Body mass index [BMI] 37.0-37.9, adult
CPT/HCPCS: 27130; 36415; 72170; 73502; 81001; 87086; 97116; 97162; 97530; C1776; C9290; J0171; J0690; J1100; J2250; J2405; J2704; J3010

== ENCOUNTER → 2022-02-06 13:39 | Outpatient (CLI) | payer MEDICARE, OTHER, SELFPAY ==
[2022-01-16 15:01] VITALS: BMI 36.1
[2022-02-06 14:26] LABS: Add Manual Diff / Slide Review NO; Basophils Absolute Auto 100 /uL (0-100); Basophils Percent Auto 1.1 % (0-2); Eosinophils Absolute Auto 200 /uL (0-450); Eosinophils Percent Auto 2.9 % (2-4); Hematocrit 28.7 % (36-46); Hemoglobin 9.3 g/dL (12.0-16.0); Lymphocytes Absolute Auto 2500 /uL (1100-4500); Lymphocytes Percent Auto 33.7 % (25-40); Mean Corpuscular HGB Conc 32.5 % (30-36); Mean Corpuscular Hemoglobin 34.1 PG (26-34); Mean Corpuscular Volume 104.9 fL (80-100); Monocytes Absolute Auto 500 /uL (0-900); Monocytes Percent Auto 6.4 % (3-14); Neutrophils Absolute Auto 4100 /uL (1500-7000); Neutrophils Percent Auto 55.9 % (50-75); Platelet Count 542 X10^3/uL (150-400); Red Blood Cell Count 2.73 X10^6/uL (4.0-5.2); Red Cell Distribution Width 17.1 % (11.6-14.8); White Blood Cell Count 7.4 X10^3/uL (4.5-11.0)
[2022-02-06 15:24] LABS: C-Reactive Protein Quant 4.3 mg/dL (<1.0)
[2022-02-06 18:18] LABS: Erythrocyte Sedimentation Rate 51 MM/HR (0-20)
== END ==
PROVIDERS: PCP Physician Assistant Medical; Referring Provider Orthopaedic Surgery; Visit Provider Orthopaedic Surgery
DX: Z96.641 Presence of right artificial hip joint (principal)
CPT/HCPCS: 36415; 85025; 85651; 86140

== ENCOUNTER → 2022-05-14 08:13 | Outpatient (CLI) | payer MEDICARE, OTHER, SELFPAY ==
[2022-01-16 15:01] VITALS: BMI 36.1
--- NOTE | 2022-05-14 | DI.MG.S_ITS ---
BILATERAL DIGITAL SCREENING MAMMOGRAM 3D/2D WITH CAD: 05/14/2022 CLINICAL: Routine screening. Comparison is made to exams dated: 05/08/2021 mammogram, 01/11/2019 mammogram, and 04/18/2020 mammogram - [facility]. There are scattered areas of fibroglandular density in both breasts (category b / 25%-50% glandular tissue). Current study was also evaluated with a Computer Aided Detection (CAD) system. There are benign calcifications in both breasts. There also are benign vascular calcifications in both breasts. No significant masses, calcifications, or other findings are seen in either breast. There has been no significant interval change. IMPRESSION: BENIGN There is no mammographic evidence of malignancy. A 1 year screening mammogram is recommended. Based on the Tyrer Cuzick model (a risk assessment model) the patient's lifetime risk is 2.5% and her 10 year risk is 2.1%. According to the ACR, ACS, and NCCN guidelines, an annual breast MRI exam along with mammogram is recommended if the patient's lifetime risk is 20% or greater. This exam was interpreted at Station ID: [id number]. NOTE: For mammograms, a report in lay terms will be sent to the patient. Approximately 15% of breast malignancies will not be visualized mammographically. In the management of a palpable breast mass, a negative mammogram must not discourage biopsy of a clinically suspicious lesion. Electronically Signed By: Jaziel cormier/brock:05/14/2022 11:59:52 letter sent: Normal Exam ACR BI-RADS Category 2: Benign Finding(s) [id number]
== END ==
PROVIDERS: PCP Physician Assistant Medical; Referring Provider Physician Assistant Medical; Visit Provider Physician Assistant Medical
DX: Z12.31 Encounter for screening mammogram for malignant neoplasm of breast (principal)
CPT/HCPCS: 77063; 77067

== ENCOUNTER → 2023-06-17 07:50 | Outpatient (CLI) | payer MEDICARE, OTHER, SELFPAY ==
[2022-01-16 15:01] VITALS: BMI 36.1
--- NOTE | 2023-06-17 07:51 | DI.MG.S_ITS ---
BILATERAL DIGITAL SCREENING MAMMOGRAM 3D/2D WITH CAD: 06/17/2023 CLINICAL: Routine screening. Comparison is made to exams dated: 05/14/2022 mammogram, 05/08/2021 mammogram, and 04/18/2020 mammogram - [facility]. There are scattered areas of fibroglandular density in both breasts (category b / 25%-50% glandular tissue). Current study was also evaluated with a Computer Aided Detection (CAD) system. There are benign calcifications in both breasts. There also are benign vascular calcifications in both breasts. No significant masses, calcifications, or other findings are seen in either breast. There has been no significant interval change. IMPRESSION: BENIGN There is no mammographic evidence of malignancy. A 1 year screening mammogram is recommended. Based on the Tyrer Cuzick model (a risk assessment model) the patient's lifetime risk is 2.3% and her 10 year risk is 2.1%. According to the ACR, ACS, and NCCN guidelines, an annual breast MRI exam along with mammogram is recommended if the patient's lifetime risk is 20% or greater. This exam was interpreted at Station ID: [id number]. NOTE: For mammograms, a report in lay terms will be sent to the patient. Approximately 15% of breast malignancies will not be visualized mammographically. In the management of a palpable breast mass, a negative mammogram must not discourage biopsy of a clinically suspicious lesion. Electronically Signed By: Amandeep lamb/brock:06/17/2023 13:42:06 letter sent: Normal Exam ACR BI-RADS Category 2: Benign Finding(s) 3342F
== END ==
LOC: MAMMO 07:51
PROVIDERS: PCP Physician Assistant Medical; Referring Provider Physician Assistant Medical; Visit Provider Physician Assistant Medical
DX: Z12.31 Encounter for screening mammogram for malignant neoplasm of breast (principal); R92.323 Mammographic fibroglandular density, bilateral breasts
CPT/HCPCS: 77063; 77067

== ENCOUNTER → 2024-08-10 07:51 | Outpatient (CLI) | payer MEDICARE, OTHER, SELFPAY ==
[2022-01-16 15:01] VITALS: BMI 36.1
--- NOTE | 2024-08-10 07:53 | DI.MG.S_ITS ---
MM screening mammo BI: 08/10/2024. BI-RADS: 1 CLINICAL: 73-year old female for bilateral screening mammogram. Tyrer-Cuzick lifetime risk of 3.3%. No personal or first-degree family history of breast cancer. PRIOR EXAMS 06/17/2023, 05/14/2022, 05/08/2021, 04/18/2020, 01/11/2019, 12/16/2017, 09/05/2015. MAMMOGRAPHY TECHNIQUE: 2D and 3D (tomosynthesis) digital mammographic views obtained, with additional images as needed for full coverage. Current study was also evaluated with a Computer Aided Detection (CAD) system. DENSITY C. The breasts are heterogeneously dense, which may obscure small masses. MAMMOGRAPHY FINDINGS Bilateral: No suspicious mass, asymmetry, microcalcification, or other abnormality seen. IMPRESSION: * No evidence of malignancy. RECOMMENDATIONS Bilateral * Annual screening mammography. OVERALL ASSESSMENT CATEGORY BI-RADS-1: Negative. The [employer] recommends annual screening mammography beginning at age 40 for women with average risk of breast cancer. ELECTRONICALLY SIGNED: Modesta Macedo M.D. on 08/14/2024 at 01:24:07 AM PT Interpreting Station ID: [id number]
== END ==
LOC: MAMMO 07:52
PROVIDERS: PCP Physician Assistant; Referring Provider Physician Assistant; Visit Provider Physician Assistant
DX: Z12.31 Encounter for screening mammogram for malignant neoplasm of breast (principal); R92.333 Mammographic heterogeneous density, bilateral breasts
CPT/HCPCS: 77063; 77067